=== PATIENT | male | born 1930 | race Caucasian/White ===

== ENCOUNTER 2017-12-11 08:05 | Inpatient (IN) | payer MEDICARE, OTHER ==
[~2017-12-11] VITALS: Ht 162.6 cm; Wt 104.3 kg
[~2017-12-11 08:05] MED LIST: ASPI-1169 PO; ATOR10TA PO; BENA20TA78 PO; CARV12.52 PO; CARV25TA PO; DOCU-270 PO; GABA-534 PO; OXYC-133 PO; SITA100T PO; TRAZ-144 PO; ZOLP10TA2 PO
--- NOTE | 2017-12-11 08:10 | NUR ---
BIBRA FROM HOME C/O ON/OFF LEFT SIDED CHEST PAIN NON-RADIATING, 162 ASA AND 2X NITRO GIVEN IN FIELD. AAO X4. RR EVEN AND UNLABORED. DR LIU AT BEDSIDE FOR EVAL. PT PLACED IN GOWN AND MONITOR.
[2017-12-11] MEDS ORDERED: FURO-144 PO (08:24)
[2017-12-11] MEDS ORDERED: OXYC10TA49 PO (08:24)
[2017-12-11] MEDS ORDERED: ATOR10TA PO (08:24)
[2017-12-11] MEDS ORDERED: CLON0.1T PO (08:24)
[2017-12-11] MEDS ORDERED: CARV25TA2 PO (08:24)
[2017-12-11] MEDS ORDERED: POTA10TA15 PO (08:24)
[2017-12-11] MEDS ORDERED: LORA1TAB PO (08:24)
[2017-12-11] MEDS ORDERED: OXYC30TA2 PO (08:24)
[2017-12-11 08:41] LABS: WHITE BLOOD COUNT (AUTO) 6.7 K/uL (4.3-11.0)
[2017-12-11 08:42] LABS: BASOPHILS # (AUTO) 0.1 /CMM (0.0-0.2); BASOPHILS % (AUTO) 0.8 % (0.0-2.0); EOSINOPHILS # (AUTO) 0.2 /CMM (0.0-0.7); HEMATOCRIT 41 % (39-51); LYMPHOCYTES # (AUTO) 1.4 /CMM (0.8-4.8); LYMPHOCYTES % (AUTO) 21.6 % (20.0-44.0); MEAN CORPUSCULAR HEMOGLOBIN 32 PG (26.0-33.0); MEAN CORPUSCULAR HGB CONC 34 g/dl (31.0-36.0); MEAN CORPUSCULAR VOLUME 94 fL (80-96); MONOCYTES # (AUTO) 0.5 /CMM (0.1-1.30); MONOCYTES % (AUTO) 8.2 % (2.0-12.0); NEUTROPHILS # (AUTO) 4.4 /CMM (1.8-8.9); NEUTROPHILS % (AUTO) 66.4 % (43.0-81.0); PLATELET COUNT (AUTO) 159 /CMM (150-450)
[2017-12-11 08:48] LABS: INR 1.25 (0.87-1.13)
[2017-12-11 08:53] LABS: TROPONIN I < 0.017 ng/mL (0.00-0.056)
[2017-12-11 08:54] LABS: ALANINE AMINOTRANSFERASE 15 U/L (12-78); ALBUMIN 3.5 g/dL (3.4-5.0); ALKALINE PHOSPHATASE 63 U/L (46-116); ASPARTATE AMINOTRANSFERASE 15 U/L (15-37); BILIRUBIN,DIRECT 0.4 mg/dL (0.0-0.2); BILIRUBIN,TOTAL 1.3 mg/dL (0.2-1.0); CALCIUM, SERUM 8.9 mg/dL (8.5-10.1); CARBON DIOXIDE 23 mmol/L (21-32); CHLORIDE 103 mmol/L (98-107); CREATININE 1.2 mg/dL (0.6-1.3); GLUCOSE 131 mg/dL (74-106); SODIUM SERUM 138 mmol/L (136-145); UREA NITROGEN, BLOOD 18 mg/dL (7-18)
[2017-12-11] MEDS ORDERED: INSU100V11 SQ (09:01)
--- NOTE | 2017-12-11 09:32 | NUR ---
REPORT GIVEN TO KETAN STEELE FOR SHAUNA TELE 315
--- NOTE | 2017-12-11 09:50 | NUR ---
QUILT MAKERHEATER PLANER OPERATOR NOTES RECEIVED PT FROM ER NURSE IN STABLE CONDITION. PER NURSE, PT CAME FROM HOME COMPLAINING OF CHEST PAIN. HE IS A/O X3. NO SOB OR SIGNS OF DISTRESS NOTED. HE DENIES ANY CHEST PAIN AT THIS TIME. SINUS YEHUDA/AFIB ON THE TELE MONITOR WITH A HR OF 54. PER ER NURSE, PT HAS BEEN YEHUDA UPON ARRIVAL. DR. CAMARGO WAS ALERTED OF PT'S ADMISSION FROM ER DOCTOR. CURRENTLY AWAITING ADMITTING ORDERS. PT WAS ORIENTED TO HIS ROOM AND VERBALIZED UNDERSTANDING OF US OF CALL LIGHT. BED IN LOW LOCKED POSITION, SIDE RAILS UP X2, CALL LIGHT WITHIN REACH, FAMILY AT BEDSIDE. WILL CONTINUE TO MONITOR AND BEGIN ADMISSION PROCESS.
[2017-12-11 10:00] VITALS: BP 140/83
--- NOTE | 2017-12-11 10:31 | NUR ---
PHYSICIAN CODING SPECIALIST NOTES NO ADMITTING ORDERS AT THIS TIME. DR. CAMARGO CALLED.
--- NOTE | 2017-12-11 11:26 | NUR ---
HEAD AND NECK SURGEON NOTES PT'S HR HAS GONE LOW 38 AND HIGH 56. NO CALL BACK FROM DR. CAMARGO AND NO ORDERS OF YET. DR. LOPEZ CALLED BY CHARGE NURSE FOR CONSULTATION AND STATED "I DO NOT SEE RAMAN'S PT". DR. QUIÑONEZ CALLED AGAIN. AWAITING CALL BACK
[2017-12-11 12:00] VITALS: BP 177/90
--- NOTE | 2017-12-11 12:14 | NUR ---
DIRECTOR CAMP NOTES TELEPHONE ORDERS RECEIVED BY DR CAMARGO.
[2017-12-11] MEDS ORDERED: NITROGLYCERIN 0.4 MG/TAB BOTTLE SL PRN (12:30)
[2017-12-11] MEDS ORDERED: INSULIN REGULAR, HUMAN 100 UNIT/ML 3 ML VIAL SQ PRN (12:30)
[2017-12-11] MEDS ORDERED: DEXTROSE 50%-WATER 50 ML DISP.SYRIN IV PRN (12:30)
[2017-12-11] MEDS ORDERED: CLONIDINE HCL 0.1 MG TABLET PO PRN (13:30)
[2017-12-11] MEDS ORDERED: oxyCODONE IR immediate release 5 MG PO PRN ×2 (13:30)
[2017-12-11] MEDS ORDERED: CARVEDILOL 12.5 MG TABLET PO SCH (13:30)
[2017-12-11] MEDS ORDERED: INSULIN ASPART/LISPRO 100 UNIT/ML CARTRIDGE SQ PRN (13:30)
[2017-12-11] MEDS: AMLODIPINE BESYLATE 5 MG TABLET PO SCH (13:34)
[2017-12-11 16:00] VITALS: BP 155/74
[2017-12-11] MEDS: CARVEDILOL 12.5 MG TABLET PO SCH (17:00)
[2017-12-11] MEDS: BLOOD SUGAR DIAGNOSTIC 1 EACH STRIP IN SCH ×2 (17:53→21:24)
[2017-12-11] MEDS: BENAZEPRIL HCL 20 MG TABLET PO SCH (17:55)
[2017-12-11] MEDS: GABAPENTIN 300 MG CAPSULE PO SCH (17:56)
--- NOTE | 2017-12-11 18:42 | NUR ---
NETWORK SPECIALIST CLOSING NOTES PT REMAINS STABLE SINCE ADMISSION. HE IS AFIB IN THE TELE MONITOR WITH A HR OF 58. ALL NEEDS WERE MET DURING SHIFT AND ORDERS CARRIED OUT ACCORDINGLY. ALL DUE MEDS GIVEN. HE CONTINUES TO DENY CHEST PAIN AT THIS TIME. FAMILY REMAINS AT BEDSIDE. WILL ENDORSE TO NIGHTSHIFT NURSE FOR SHAUNA
--- NOTE | 2017-12-11 19:30 | NUR ---
IRRIGATION EQUIPMENT MECHANIC OPENING NOTES: PATIENT IN BED, AOX3, ON ROOM AIR, BREATHING EVEN AND UNLABORED. BREATH SOUNDS CLEAR. ON TELE MONITORING: AFIB AT RATE OF 55. PATIENT DENIES SOB, OR CHEST PAIN, STATES HE IS FEELING WELL, TALKING TO FAMILY AT BEDSIDE. PIV OVER LAC G 18 AND RAC G 18 INTACT AND PATENT TO FLUSH. PROVIDED FOR COMFORT AND SAFETY. BED IN LOWEST AND LOCKED POSITION, SIDERAILS UP X 3, CALL LIGHT WITHIN REACH. PLACED PATIENT ON O2 AT 2 LPM. WILL CONT TO MONITOR.
[2017-12-11 20:00] VITALS: BP 141/79
--- NOTE | 2017-12-11 21:15 | NUR ---
RN NOTES: RECEIVED CALL FROM TELE MONITOR: PATIENT'S HR NOW AT 48. CHECKED ON PATIENT, ON BED, AOX3, ON O2 AT 2 LPM VIA NC, NO SOB, DENIES CHEST PAIN. BP STABLE. APICAL HR CHECKED FOR FULL MIN: 52 AT THIS TIME. WILL CONT TO MONITOR.
[2017-12-11] MEDS: ENOXAPARIN SODIUM 100 MG/ML DISP.SYRIN SQ SCH (21:16)
--- NOTE | 2017-12-11 21:50 | NUR ---
RN NOTES: BLOOD SUGAR CHECKED AT 128 MG/DL, NI INDICATION FOR INSULIN AT THIS TIME.
[2017-12-11 22:00] VITALS: BP 135/77
[2017-12-11] MEDS ORDERED: TRAZODONE 50 MG TABLET PO SCH (22:00)
[2017-12-11] MEDS ORDERED: ZOLPIDEM TARTRATE 10 MG TABLET PO SCH (22:00)
[2017-12-11] MEDS ORDERED: TAMSULOSIN 0.4 MG CAP.SR.24H PO SCH (22:00)
--- NOTE | 2017-12-11 23:16 | NUR ---
RN NOTES: SPOKE TO DR PETR MD (CARDIO GLEASON OPERATOR), RE PATIENT'S HR GOING DOWN TO 40S AND EVEN 30S. PATIENT IS ASYMPTOMATIC, AND HR OF 30S IS NOT SUSTAINED. PER DR HUMPHREYS, CONTINUE TO MONITOR CLOSELY.
[2017-12-12] VITALS: BP 142/75
--- NOTE | 2017-12-12 00:30 | NUR ---
RN NOTES: PATIENT REQUESTED TO HAVE HIS PIV OVER LAC TAKEN OFF DUE TO MILD PAIN. PIV STILL WITH GOOD BLOOD RETURN. REMOVED PIV AND REINSERTED NEW IV LINE OVER LEFT HAND G22.
[2017-12-12 04:00] VITALS: BP 141/70
[2017-12-12] MEDS: BLOOD SUGAR DIAGNOSTIC 1 EACH STRIP IN SCH ×2 (06:59→11:41)
[2017-12-12 07:03] VITALS: BP 144/72
--- NOTE | 2017-12-12 07:20 | NUR ---
REPORT RECEIVED AT THE BEDSIDE. PATIENT IS RESTING COMFORTABLY IN BED. NO SOB OR DISTRESS NOTED AT THIS TIME. PATIENT DENIES PAIN. HEART RATE AFIB 48-50. BED IN A LOW POSITION, CALL LIGHT WITHIN PATIENT REACH, FAMILY IS AT THE BEDSIDE. WILL CONTINUE TO MONITOR.
[2017-12-12] MEDS ORDERED: PANTOPRAZOLE 40 MG TABLET.DR PO SCH (07:30)
--- NOTE | 2017-12-12 07:30 | NUR ---
TABLE ASSEMBLER METAL CLOSING NOTES: PATIENT IN BED, AOX3, ON O2 AT 2 LPM VIA NC, BREATHING EVEN AND UNLABORED. APPEARS CALM AND IN NO DISTRESS. DENIES PAIN AT THIS TIME. PIV OVER LEFT HAND G22 INTACT AND PATENT TO FLUSH. ON TELE MONITOR: AFIB AT RATE OF 48. DUE MEDS GIVEN. PROVIDED FOR COMFORT AND SAFETY. BED IN LOWEST AND LOCKED POSITION, SIDERAILS UP X 3, CALL LIGHT WITHIN REACH. ENDORSED TO KETAN HERRERA FOR SHAUNA.
[2017-12-12 08:00] VITALS: BP 144/72
--- NOTE | 2017-12-12 08:45 | NUR ---
DR KHAN ON FLOOR. STATES OK TO GIVE LOTENSIN AND AMLODIPINE, HOLD ALL OTHER BP MEDS.
[2017-12-12] MEDS: CARVEDILOL 12.5 MG TABLET PO SCH (08:57)
[2017-12-12] MEDS: GABAPENTIN 300 MG CAPSULE PO SCH (08:58)
[2017-12-12 08:59] VITALS: BP 144/72
[2017-12-12] MEDS: AMLODIPINE BESYLATE 5 MG TABLET PO SCH (08:59)
[2017-12-12] MEDS: BENAZEPRIL HCL 20 MG TABLET PO SCH (08:59)
[2017-12-12] MEDS ORDERED: LINAGLIPTIN 5 MG TABLET PO SCH (09:00)
[2017-12-12] MEDS ORDERED: ENALAPRIL MALEATE (5 MG) 5 MG TABLET PO SCH (09:00)
[2017-12-12] MEDS ORDERED: ATORVASTATIN 10 MG TABLET PO SCH (09:00)
[2017-12-12] MEDS ORDERED: DOCUSATE SODIUM 100 MG CAPSULE PO SCH (09:00)
[2017-12-12] MEDS ORDERED: ASPIRIN 81 MG TAB.CHEW PO SCH (09:00)
[2017-12-12] MEDS: ENOXAPARIN SODIUM 100 MG/ML DISP.SYRIN SQ SCH (09:00)
[2017-12-12] MEDS ORDERED: LORAZEPAM 1 MG TABLET PO SCH (09:00)
--- NOTE | 2017-12-12 09:58 | NUR ---
SPOKE TO DR KHAN OVER THE PHONE AND INFORMED HIM THAT DR CAMARGO IS READY TO DISCHARGE THE PATIENT. MD IS IN AGREEMENT AND STATES THAT HE WILL SEND AND ELECTRONIC RX FOR ELEQUIS TO THE PATIENT'S PHARMACY TODAY AND THAT NO HARD COPY RX IS NEEDED AT DISCHARGE. POST XRAYS OF THE BILATERAL KNEES, WILL DISCHARGE THE PATIENT HOME.
--- NOTE | 2017-12-12 10:45 | NUR ---
XRAYS TAKEN OF BILATERAL KNEES. MD STATES OK TO DISCHARGE AND HE WILL FOLLOW UP WITH THE PATIENT POST DISCHARGE.
--- NOTE | 2017-12-12 11:40 | NUR ---
PT REFUSING 1200 GLUCOSE CHECK. STATES "I AM GOING HOME, I WILL CHECK WHEN I GET THERE."
--- NOTE | 2017-12-12 12:20 | NUR ---
DISCHARGE INSTRUCTIONS GIVEN TO THE PATIENT AND GRANDSON AND ABLE TO UNDERSTAND. ALL PAPER WORK SIGNED AND BELONGINGS ACCOUNTED FOR. PATIENT AND GRANDSON STATE FULL UNDERSTANDING OF DISCHARGE AND FOLLOW UP INSTRUCTIONS. IV LINE REMOVED AND PRESSURE APPLIED, NO BLEEDING NOTED AT THE SITE.. PICTURES OF SKIN NOT NEEDED PATIENT SKIN IS INTACT. HEART MONITOR REMOVED AND RETURNED TO THE TELE DESK. FLU AND PNEUMONIA NOT GIVEN PATIENT REFUSES THE VACCINES. PATIENT LEFT IN STABLE CONDITION, AMBULATORY, TO HOME. ESCORTED TO CAR BY DEMETRIS KIMBLE. NO SOB OR DISTRESS NOTED.
== END 2017-12-12 12:46 | disposition home or self-care (01) | DRG 303 ==
LOC: ER 08:07 → TELE 09:32
PROVIDERS: ADMIT Family Medicine; ATTEND Family Medicine
DX: I25.119 Atherosclerotic heart disease of native coronary artery with unspecified angina pectoris (principal); D69.6 Thrombocytopenia, unspecified; I48.2 Chronic atrial fibrillation; I50.9 Heart failure, unspecified; I11.0 Hypertensive heart disease with heart failure; E11.9 Type 2 diabetes mellitus without complications; I10 Essential (primary) hypertension; E78.5 Hyperlipidemia, unspecified; I16.0 Hypertensive urgency; F03.90 Unspecified dementia, unspecified severity, without behavioral disturbance, psychotic disturbance, mood disturbance, and anxiety; Z96.659 Presence of unspecified artificial knee joint; Z95.1 Presence of aortocoronary bypass graft; Z91.19 Patient's noncompliance with other medical treatment and regimen; Z86.73 Personal history of transient ischemic attack (TIA), and cerebral infarction without residual deficits; Z82.49 Family history of ischemic heart disease and other diseases of the circulatory system; Z79.82 Long term (current) use of aspirin; N40.0 Benign prostatic hyperplasia without lower urinary tract symptoms; K21.9 Gastro-esophageal reflux disease without esophagitis; I25.5 Ischemic cardiomyopathy; I35.0 Nonrheumatic aortic (valve) stenosis; J44.9 Chronic obstructive pulmonary disease, unspecified; Z79.84 Long term (current) use of oral hypoglycemic drugs; Z79.899 Other long term (current) drug therapy; Z79.4 Long term (current) use of insulin; H54.7 Unspecified visual loss; H91.90 Unspecified hearing loss, unspecified ear; G47.33 Obstructive sleep apnea (adult) (pediatric); Z91.11 Patient's noncompliance with dietary regimen; Z91.14 Patient's other noncompliance with medication regimen; K08.409 Partial loss of teeth, unspecified cause, unspecified class; E66.9 Obesity, unspecified; Z68.39 Body mass index [BMI] 39.0-39.9, adult
CPT/HCPCS: 36415; 71045-TC; 73560-TC; 80048-TC; 80076-TC; 82962-TC; 84484-TC; 85025-TC; 85730-TC; 87081-TC; 93307-TC; A4606; J1650; J1815; Z7610

== ENCOUNTER 2018-07-20 18:34 | Inpatient (IN) | payer MEDICARE, OTHER ==
[~2018-07-20] VITALS: Ht 165.1 cm; Wt 98.9 kg
[~2018-07-20 18:34] MED LIST changes: -CARV12.52 PO; +CLON0.1T PO; +INSU100V11 SQ; +LORA1TAB PO; -OXYC-133 PO; +OXYC10TA49 PO; +OXYC30TA2 PO; -TRAZ-144 PO; +TRAZ-182 PO
--- NOTE | 2018-07-20 18:45 | NUR ---
PT BIB PARAMEDICS, CAME IN DUE TO SOB, ON 02 @ 2LPM VIA NC AND TOLERATED WELL WITH 02 SAT OF 96%. PATIENT IS ALERT AND ORIENTED X 3, VERBALLY RESPONSIVE. SON AND AT BEDSIDE. KEPT COMFORTABLE. WILL CONTINUE TO MONITOR ACCORDINGLY.
[2018-07-20 19:03] LABS: BASOPHILS % (AUTO) 0.6 % (0.0-2.0); EOSINOPHILS % (AUTO) 3.8 % (0.0-6.0); HEMATOCRIT 40 % (39-51); HEMOGLOBIN 13.3 g/dL (13.5-17.5); LYMPHOCYTES # (AUTO) 1.4 /CMM (0.8-4.8); LYMPHOCYTES % (AUTO) 28.8 % (20.0-44.0); MEAN CORPUSCULAR HGB CONC 33 g/dl (31.0-36.0); MEAN CORPUSCULAR VOLUME 93 fL (80-96); MONOCYTES # (AUTO) 0.5 /CMM (0.1-1.30); MONOCYTES % (AUTO) 9.5 % (2.0-12.0); NEUTROPHILS # (AUTO) 2.9 /CMM (1.8-8.9); NEUTROPHILS % (AUTO) 57.3 % (43.0-81.0); PLATELET COUNT (AUTO) 194 /CMM (150-450); RDW COEFFICIENT OF VARIATION 13.2 (11.5-15.0); RED BLOOD CELL COUNT(AUTO) 4.29 MIL/uL (4.5-6.0)
--- NOTE | 2018-07-20 19:05 | NUR ---
RADIOLOGY AT BEDSIDE FOR CXR
[2018-07-20] MEDS ORDERED: POTA-10 PO (19:08)
[2018-07-20] MEDS ORDERED: AMLO5TAB7 PO (19:08)
[2018-07-20] MEDS ORDERED: AMLO10TA6 PO (19:08)
[2018-07-20] MEDS ORDERED: APIX5TAB PO (19:08)
[2018-07-20 19:13] LABS: CALCIUM, SERUM 9.3 mg/dL (8.5-10.1); CARBON DIOXIDE 23 mmol/L (21-32); CHLORIDE 106 mmol/L (98-107); GLUCOSE 113 mg/dL (74-106); POTASSIUM 3.8 mmol/L (3.5-5.1); SODIUM SERUM 139 mmol/L (136-145); UREA NITROGEN, BLOOD 14 mg/dL (7-18)
[2018-07-20 19:15] LABS: INR 1.23 (0.85-1.15)
[2018-07-20 19:20] LABS: TROPONIN I < 0.017 ng/mL (0.00-0.056)
[2018-07-20 19:28] LABS: ALANINE AMINOTRANSFERASE 11 U/L (12-78); ALBUMIN 3.6 g/dL (3.4-5.0); ALKALINE PHOSPHATASE 86 U/L (46-116); ASPARTATE AMINOTRANSFERASE 11 U/L (15-37); B-TYPE NATRIURETIC PEPTIDE 3410 PG/ML (0-125); BILIRUBIN,DIRECT 0.2 mg/dL (0.0-0.2); BILIRUBIN,TOTAL 0.8 mg/dL (0.2-1.0); TOTAL PROTEIN, SERUM 7.8 g/dL (6.4-8.2)
--- NOTE | 2018-07-20 19:29 | NUR ---
CALLED [facility] FOR PANEL ADMISSION, DR. JONI WILSON.
[2018-07-20] MEDS ORDERED: FUROSEMIDE 40 MG/4 ML VIAL IV ONE (19:30)
[2018-07-20] MEDS ORDERED: FUROSEMIDE 40 MG/4 ML VIAL ONE (19:30)
[2018-07-20] MEDS ORDERED: ASPIRIN 81 MG TAB.CHEW ONE (19:38)
--- NOTE | 2018-07-20 19:39 | NUR ---
CALLED RN SUP FOR TELE BED.
[2018-07-20] MEDS ORDERED: HYDROCODONE/APAP 5/325MG 1 EACH TABLET PO PRN (20:00)
[2018-07-20] MEDS ORDERED: hydrALAZINE HCL 25 MG TABLET PO PRN (20:00)
[2018-07-20] MEDS ORDERED: *INSULIN REGULAR(HUMULIN R)HUM 100 UNIT/ML VIAL SQ PRN ×2 (20:00→22:30)
[2018-07-20] MEDS ORDERED: ONDANSETRON HCL/PF 4 MG/2 ML VIAL IVP PRN (20:00)
[2018-07-20] MEDS ORDERED: ACETAMINOPHEN 325 MG TABLET PO PRN (20:00)
[2018-07-20] MEDS ORDERED: ALBUTEROL FS 2.5 MG/3 ML VIAL.NEB NEB SCH (20:00)
[2018-07-20] MEDS ORDERED: Z GUARD REMEDY 2 OZ OINT TP PRN (20:00)
[2018-07-20] MEDS ORDERED: MAGNESIUM HYDROXIDE 30 ML UDC PO PRN (20:00)
[2018-07-20] MEDS ORDERED: MAG HYDROX/AL HYDROX/SIMETH 30 ML UDC PO PRN (20:00)
[2018-07-20] MEDS ORDERED: DEXTROSE 50%-WATER 50 ML DISP.SYRIN IV PRN ×2 (20:00→22:30)
[2018-07-20] MEDS ORDERED: ZOLPIDEM TARTRATE 5 MG TABLET PO PRN ×2 (20:00→23:00)
[2018-07-20] MEDS ORDERED: INSULIN REGULAR, HUMAN 100 UNIT/ML 3 ML VIAL SQ PRN (20:00)
[2018-07-20] MEDS ORDERED: ASPIRIN 81 MG TAB.CHEW PO ONE (20:00)
--- NOTE | 2018-07-20 20:07 | NUR ---
PT IS ASSIGNED TO [facility] RM#: [id number], DX: HEART FAILURE, AND ACCEPTING MD: DR QUINONES
--- NOTE | 2018-07-20 20:16 | NUR ---
GAVE REPORT TO KETAN ECHAVARRIA FOR SHAUNA
[2018-07-20] MEDS ORDERED: MORPHINE SULFATE INJ 4 MG/ML DISP.SYRIN IV PRN (21:30)
--- NOTE | 2018-07-20 21:35 | NUR ---
TELE/RN NOTES RECEIVED PT. FROM ER VIA DESTINY. PT. IS AWAKE, ALERT AND ORIENTED X 3 BREATHING EVEN AND UNLABORED ON 2LPM O2 VIA NC. NO SOB, RESPIRATORY DISTRESS OR COMPLAINTS OF PAIN NOTED AT THIS TIME. NO COMPLAINTS OF CHEST PAIN, HEADACHE, LIGHTHEADED OR DIZZINESS NOTED AT THIS TIME. ORIENTED PT. TO ROOM. PLACED EXTERNAL DRIVERS LICENSE EXAMINER ON PT. CURRENT RHYTHM = AFIB HR 52. PT. WITH LEFT HAND 20 GAUGE IV SALINE LOCK PRESENT, PATENT AND INTACT. BED LOCKED AND IN LOWEST POSITION, SIDE RAILS UP X2, CALL LIGHT WITHIN REACH, WILL CONTINUE TO MONITOR.
--- NOTE | 2018-07-20 21:41 | NUR ---
TRANSFERRED PT PER ACLS PROTOCOL
[2018-07-20 21:45] VITALS: BP 159/75
[2018-07-20] MEDS ORDERED: BLOOD SUGAR DIAGNOSTIC 1 EACH STRIP VI SCH (22:00)
--- NOTE | 2018-07-20 22:07 | NUR ---
TELE/RN NOTES SPOKE WITH DR. QUINONES TO INFORM HER PT. IS NOW UNDER DR. CAMARGO'S CARE. PER DR. QUINONES, SHE IS AWARE AND "PLEASE D/C ALL OF MY ORDERS". WILL CARRY OUT ORDERS. WILL CONTINUE TO MONITOR.
[2018-07-20] MEDS ORDERED: CARVEDILOL 6.25 MG TABLET PO SCH (22:30)
[2018-07-20] MEDS: GABAPENTIN 300 MG CAPSULE PO SCH (23:00)
[2018-07-20] MEDS: IPRATROPIUM NEB FS 0.5 MG/2.5 ML AMPUL.NEB NEB SCH (23:11)
[2018-07-20] MEDS: ALBUTEROL FS 2.5 MG/3 ML VIAL.NEB NEB SCH (23:11)
--- NOTE | 2018-07-20 23:13 | NUR ---
TELE/RN NOTES CALLED AND NOTIFIED DR. CAMARGO PT. IS AFIB ON THE TAKE DOWN SORTER HR RANGING BETWEEN 36-49. PT. IS ASYMPTOMATIC. NO COMPLAINTS OF SHORTNESS OF BREATH, LIGHTHEADED, DIZZINESS OR LOC. PER DR. CAMARGO NEW ORDERS: DISCONTINUE COREG MEDICATION, OK FOR PT. TO HAVE AMBIEN MEDICATION ORDERED, HOLD GABAPENTIN MEDICATION FOR TONIGHT, CHANGE NORVASC MEDICATION TO 5MG PO Q12 HOURS, PROTONIX 40 MG PO DAILY FIRST DOSE TO BE GIVEN NOW. PER DR. CAMARGO PT. HEART RATE IS OK RIGHT NOW NO INTERVENTION NEEDED, BUT IF PT. BECOMES SYMPTOMATIC PLACE PT. ON EXTERNAL PACER. PT. TO HAVE CARDIAC CONSULT TOMORROW. WILL CARRY OUT ORDERS. WILL CONTINUE TO MONITOR.
[2018-07-20] MEDS: PANTOPRAZOLE 40 MG TABLET.DR PO SCH (23:36)
[2018-07-20] MEDS: ZOLPIDEM TARTRATE 5 MG TABLET PO SCH (23:36)
[2018-07-20] MEDS: BLOOD SUGAR DIAGNOSTIC 1 EACH STRIP VI SCH (23:48)
[2018-07-21] VITALS (7 sets, daily range): BP systolic 136–150; BP diastolic 52–85
[2018-07-21] MEDS ORDERED: FUROSEMIDE 40 MG/4 ML VIAL IV SCH ×2 (04:00→05:00)
--- NOTE | 2018-07-21 06:05 | NUR ---
TELE/RN NOTES PT. IS SITTING UP IN BED. PT. IS AWAKE, ALERT AND ORIENTED X3. BREATHING EVEN AND UNLABORED ON 2LPM O2 VIA NC. NO SOB, RESPIRATORY DISTRESS OR COMPLAINTS OF PAIN NOTED AT THIS TIME AND THROUGHOUT SHIFT. NO COMPLAINTS OF CHEST PAIN, HEADACHE, LIGHTHEADED OR DIZZINESS NOTED AT THIS TIME AND THROUGHOUT SHIFT. PT. WITH EXTERNAL LEVEL VIAL MARKER PRESENT AND INTACT, CURRENT RHYTHM = AFIB HR 42. PT. WITH LEFT HAND 20 GAUGE IV SALINE LOCK PRESENT, PATENT AND INTACT. ALL PT. NEEDS MET. BED LOCKED AND IN LOWEST POSITION, SIDE RAILS UP X2, CALL LIGHT WITHIN REACH, WILL ENDORSE TO DAYSHIFT NURSE FOR CONTINUITY OF CARE.
[2018-07-21] MEDS: BLOOD SUGAR DIAGNOSTIC 1 EACH STRIP VI SCH ×4 (06:49→22:41)
[2018-07-21 07:08] LABS: BASOPHILS % (AUTO) 0.6 % (0.0-2.0); EOSINOPHILS % (AUTO) 3.4 % (0.0-6.0); HEMATOCRIT 40 % (39-51); HEMOGLOBIN 13.5 g/dL (13.5-17.5); LYMPHOCYTES # (AUTO) 1.7 /CMM (0.8-4.8); LYMPHOCYTES % (AUTO) 28.4 % (20.0-44.0); MEAN CORPUSCULAR HGB CONC 34 g/dl (31.0-36.0); MEAN CORPUSCULAR VOLUME 95 fL (80-96); MONOCYTES # (AUTO) 0.6 /CMM (0.1-1.30); MONOCYTES % (AUTO) 9.8 % (2.0-12.0); NEUTROPHILS # (AUTO) 3.4 /CMM (1.8-8.9); NEUTROPHILS % (AUTO) 57.8 % (43.0-81.0); PLATELET COUNT (AUTO) 207 /CMM (150-450); RDW COEFFICIENT OF VARIATION 14.1 (11.5-15.0); RED BLOOD CELL COUNT(AUTO) 4.24 MIL/uL (4.5-6.0); WHITE BLOOD COUNT (AUTO) 5.9 K/uL (4.3-11.0)
[2018-07-21 07:12] LABS: CALCIUM, SERUM 8.3 mg/dL (8.5-10.1); CARBON DIOXIDE 27 mmol/L (21-32); CHLORIDE 102 mmol/L (98-107); CREATININE 1.2 mg/dL (0.6-1.3); GLUCOSE 108 mg/dL (74-106); POTASSIUM 3.3 mmol/L (3.5-5.1); SODIUM SERUM 140 mmol/L (136-145); UREA NITROGEN, BLOOD 12 mg/dL (7-18)
--- NOTE | 2018-07-21 07:23 | NUR ---
MARINE EQUIPMENT TEST ENGINEER OPENING NOTES PT WAS RECEIVED SITTING IN BED WITH SIDE RAILS UP X2, A/O X3, NO S/S OF PAIN OR DISTRESS NOTED, BREATHING IS EVEN AND UNLABORED AND CURRENTLY ON 2L VIA NC, PT IS ON TELE MONITOR SHOWING KENISHA BLACKMAN IN THE 4OS ASYMPTOMATIC MD IS AWARE, IV IS PATENT AND INTACT, SAFETY PRECAUTIONS IN PLACE, CALL LIGHT WITHIN REACH, WILL CONTINUE TO MONITOR ACCORDINGLY
[2018-07-21 07:53] LABS: IRON, SERUM 79 ug/dl (50-175); TOTAL IRON BINDING CAPACITY 288 ug/dl (250-450)
[2018-07-21] MEDS: ALBUTEROL FS 2.5 MG/3 ML VIAL.NEB NEB SCH ×3 (08:13→23:30)
[2018-07-21] MEDS: IPRATROPIUM NEB FS 0.5 MG/2.5 ML AMPUL.NEB NEB SCH ×3 (08:13→23:30)
[2018-07-21] MEDS: DOCUSATE SODIUM 100 MG CAPSULE PO SCH (08:29)
[2018-07-21] MEDS: PANTOPRAZOLE 40 MG TABLET.DR PO SCH (08:30)
[2018-07-21] MEDS ORDERED: POTASSIUM CHLORIDE 10 MEQ TABLET.SA PO SCH (09:00)
[2018-07-21] MEDS ORDERED: BENAZEPRIL HCL 20 MG TABLET PO SCH (09:00)
[2018-07-21] MEDS ORDERED: GABAPENTIN 300 MG CAPSULE PO SCH (09:00)
[2018-07-21] MEDS: BENAZEPRIL HCL 10 MG TABLET PO SCH (09:00)
[2018-07-21] MEDS ORDERED: CARVEDILOL 6.25 MG TABLET PO SCH (09:00)
[2018-07-21] MEDS ORDERED: DOCUSATE SODIUM 100 MG CAPSULE PO SCH (09:00)
[2018-07-21] MEDS ORDERED: AMLODIPINE BESYLATE 5 MG TABLET PO SCH ×3 (09:00)
[2018-07-21] MEDS: AMLODIPINE BESYLATE 5 MG TABLET PO SCH ×2 (09:00→22:43)
[2018-07-21] MEDS ORDERED: APIXABAN 5 MG TABLET PO SCH ×2 (09:00)
[2018-07-21 09:43] LABS: AMYLASE 20 U/L (25-115); LIPASE 63 U/L (73-393)
[2018-07-21] MEDS: POTASSIUM CHLORIDE 20 MEQ TAB.PRT.SR PO SCH (10:04)
[2018-07-21] MEDS ORDERED: FUROSEMIDE 20 MG/2 ML VIAL IV SCH ×2 (12:00→17:00)
[2018-07-21] MEDS: INSULIN REGULAR, HUMAN 100 UNIT/ML 3 ML VIAL SQ PRN (17:39)
--- NOTE | 2018-07-21 18:07 | NUR ---
PEDIATRIC GENETIC COUNSELOR CLOSING NOTES PT SITTING IN BED WITH SIDE RAILS UP X2, A/O X3, NO S/S OF PAIN OR DISTRESS NOTED, BREATHING IS EVEN AND UNLABORED AND CURRENTLY ON 2L VIA NC, PT IS ON TELE MONITOR SHOWING KENISHA BLACKMAN IN THE 4OS ASYMPTOMATIC MD IS AWARE, IV IS PATENT AND INTACT WITH NO IVF RUNNING, FRIEND/FAMILY IS PRESENT AT BEDSIDE, SAFETY PRECAUTIONS IN PLACE, CALL LIGHT WITHIN REACH, ALL NEEDS ATTENDED TO, WILL ENDORSE TO HORTICULTURAL AGENT FOR CONTINUITY OF CARE
--- NOTE | 2018-07-21 19:30 | NUR ---
RN OPENING NOTES PT IS AWAKE AND ALERT, SITTING ON THE CHAIR. PT FAMILY IS AT BEDSIDE. PT IN ROOM AIR, TOLERATING WELL, NO SIGNS OF DISTRESS, NO LABORED BREATHING. CARDIAC MONITORING IN PLACED, SHOWING A.FIB AT 73, ASYMPTOMATIC. IV ACCESS ON THE LEFT HAND 20G IS PATENT AND INTACT. PT DENIES ANY PAIN, NO SOB. SAFETY MEASURES IN PLACED, CALL LIGHT WITHIN REACH. WILL CONTINUE TO MONITOR AND ASSESS PT.
[2018-07-21] MEDS: GABAPENTIN 300 MG CAPSULE PO SCH (22:00)
--- NOTE | 2018-07-21 22:41 | NUR ---
RN NOTES/ ACCUCHECK PT BLOOD SUGAR IS 103, NO INSULIN COVERAGE PER SLIDING SCALE.
[2018-07-21] MEDS: ZOLPIDEM TARTRATE 5 MG TABLET PO SCH (22:42)
[2018-07-22] VITALS (7 sets, daily range): BP systolic 110–146; BP diastolic 53–63
--- NOTE | 2018-07-22 01:15 | NUR ---
RN NOTES PT GOT OUT OF THE ROOM. HE WAS WALKING AROUND THE UNIT. HE WAS SLIGHTLY CONFUSED, HE ASKED WHERE HIS ROOM IS AND WHEN TOLD WHERE IT IS, HE STATES "NO, ITS NOT MY ROOM." HE'S SITTING OUTSIDE HIS ROOM ON A CHAIR, NO SIGNS OF FURTHER MENTAL STATUS CHANGE.
--- NOTE | 2018-07-22 06:24 | NUR ---
RN NOTES/ ACCUCHECK BLOOD SUGAR IS 120, NO INSULIN COVERAGE PER SLIDING SCALE
[2018-07-22] MEDS: BLOOD SUGAR DIAGNOSTIC 1 EACH STRIP VI SCH ×4 (06:26→22:08)
--- NOTE | 2018-07-22 06:31 | NUR ---
RN CLOSING NOTES PT IS AWAKE AND ALERT TO NAME AND PLACE. PT IN ROOM AIR, TOLERATING WELL, NO SIGNS OF DISTRESS, NO LABORED BREATHING. CARDIAC MONITORING IN PLACED, SHOWING A.FIB AT 51, ASYMPTOMATIC, NO CHEST PAIN. IV ACCESS ON THE LEFT HAND 20G IS PATENT AND INTACT. PT DENIES ANY PAIN, NO SOB. SAFETY MEASURES IN PLACED, CALL LIGHT WITHIN REACH. WILL ENDORSE CONTINUITY OF CARE TO ONCOMING RN
[2018-07-22 07:07] LABS: BASOPHILS % (AUTO) 0.6 % (0.0-2.0); EOSINOPHILS % (AUTO) 3.6 % (0.0-6.0); HEMATOCRIT 39 % (39-51); HEMOGLOBIN 13.4 g/dL (13.5-17.5); LYMPHOCYTES # (AUTO) 1.5 /CMM (0.8-4.8); LYMPHOCYTES % (AUTO) 25.9 % (20.0-44.0); MEAN CORPUSCULAR HGB CONC 34 g/dl (31.0-36.0); MEAN CORPUSCULAR VOLUME 94 fL (80-96); MONOCYTES # (AUTO) 0.7 /CMM (0.1-1.30); MONOCYTES % (AUTO) 11.7 % (2.0-12.0); NEUTROPHILS # (AUTO) 3.4 /CMM (1.8-8.9); NEUTROPHILS % (AUTO) 58.2 % (43.0-81.0); PLATELET COUNT (AUTO) 222 /CMM (150-450); RDW COEFFICIENT OF VARIATION 14.5 (11.5-15.0); RED BLOOD CELL COUNT(AUTO) 4.19 MIL/uL (4.5-6.0); WHITE BLOOD COUNT (AUTO) 5.8 K/uL (4.3-11.0)
--- NOTE | 2018-07-22 07:25 | NUR ---
JACK SPOOLER TENDER INITIAL NOTES Reprot received at bedside. Patient received in bed, intermitently sleeping, easily aroused. Verbally responsive. Came in for worsening SOb [id number]. Dx: CHF. NPO after midnight for possible PPM placement. Tele: A-fib; HR 40-50s with PVCs. On ongoing potassium PO placement. No SOB noted. Not in any type of distress. safety measures in place. Will continue to monitor and assess patient.
[2018-07-22 07:30] LABS: ALANINE AMINOTRANSFERASE 14 U/L (12-78); ALBUMIN 3.5 g/dL (3.4-5.0); ALKALINE PHOSPHATASE 66 U/L (46-116); ASPARTATE AMINOTRANSFERASE 11 U/L (15-37); BILIRUBIN,TOTAL 1.3 mg/dL (0.2-1.0); CALCIUM, SERUM 8.9 mg/dL (8.5-10.1); CARBON DIOXIDE 27 mmol/L (21-32); CHLORIDE 101 mmol/L (98-107); CREATININE 1.3 mg/dL (0.6-1.3); GLUCOSE 137 mg/dL (74-106); POTASSIUM 3.3 mmol/L (3.5-5.1); SODIUM SERUM 136 mmol/L (136-145); TOTAL PROTEIN, SERUM 7.9 g/dL (6.4-8.2); UREA NITROGEN, BLOOD 15 mg/dL (7-18)
[2018-07-22] MEDS: ALBUTEROL FS 2.5 MG/3 ML VIAL.NEB NEB SCH ×2 (07:51→15:16)
[2018-07-22] MEDS: IPRATROPIUM NEB FS 0.5 MG/2.5 ML AMPUL.NEB NEB SCH ×2 (07:51→15:15)
[2018-07-22] MEDS ORDERED: FUROSEMIDE 40 MG TABLET PO SCH (09:00)
[2018-07-22] MEDS: AMLODIPINE BESYLATE 5 MG TABLET PO SCH ×2 (09:03→21:15)
[2018-07-22] MEDS: BENAZEPRIL HCL 10 MG TABLET PO SCH (09:03)
[2018-07-22] MEDS: POTASSIUM CHLORIDE 20 MEQ TAB.PRT.SR PO SCH ×3 (09:03→11:25)
[2018-07-22] MEDS: DOCUSATE SODIUM 100 MG CAPSULE PO SCH (09:03)
[2018-07-22] MEDS: PANTOPRAZOLE 40 MG TABLET.DR PO SCH (09:03)
[2018-07-22] MEDS: INSULIN REGULAR, HUMAN 100 UNIT/ML 3 ML VIAL SQ PRN ×2 (11:58→17:34)
[2018-07-22 16:44] LABS: CALCIUM, SERUM 8.5 mg/dL (8.5-10.1); CARBON DIOXIDE 25 mmol/L (21-32); CHLORIDE 102 mmol/L (98-107); CREATININE 1.4 mg/dL (0.6-1.3); GLUCOSE 108 mg/dL (74-106); POTASSIUM 3.6 mmol/L (3.5-5.1); SODIUM SERUM 137 mmol/L (136-145); UREA NITROGEN, BLOOD 19 mg/dL (7-18)
--- NOTE | 2018-07-22 19:19 | NUR ---
TECHNICAL TRAINING INSTRUCTOR CLOSING NOTES Report given at bedside. Patient in bed, awake and verbally responsive. Alert and oriented x4, Colombian speaking with limited Citizen [place]. Denies any pain. No SOB/labored breathing noted. Not in any type of distress. Breathing treatment on the clock. Afebrile. Tele: Afib; HR 40-50s. Permanent pacemaker placement tomorrow on 07/23/18 @0900. Consents signed. On ongoing potassium replacement (K-Dur) PO. NPO after midnight tonight EXCEPT for meds as ordered. Daughter made aware of procedure. All needs anticipated and met. Bed in locked and lowest position with call light within reach. Endorsed to oncoming shift nurse
--- NOTE | 2018-07-22 19:40 | NUR ---
RN NOTES RECEIVED PT AWAKE, OUT OF BED SITTING IN THE CHAIR WITH FAMILY AT BEDSIDE. ON ROOM AIR AND TOLERATED WELL, NO SIGNS OF DISTRESS AND DISCOMFORT NOTED. PT IS ALERT AND ORIENTED X3, FORGETFUL. TELE MONITOR READS A. FIB. WITH HEART RATE AT 47. IV ACCESS ON LEFT HAND PATENT AND INTACT. FOR PPM PLACEMENT TOMORROW, PLAN OF CARE DISCUSSED WITH THE PT AND FAMILY AT BEDSIDE AND VERBALIZED UNDERSTANDING. SAFETY MEASURES AND FALL PRECAUTION OBSERVED, CALL LIGHT WITH IN REACH. WILL CONTINUE TO MONITOR PT.
[2018-07-22] MEDS: GABAPENTIN 300 MG CAPSULE PO SCH (22:04)
[2018-07-22] MEDS: ZOLPIDEM TARTRATE 5 MG TABLET PO SCH (22:04)
[2018-07-23] VITALS: BP 126/51
[2018-07-23] MEDS: IPRATROPIUM NEB FS 0.5 MG/2.5 ML AMPUL.NEB NEB SCH ×3 (00:22→18:15)
[2018-07-23] MEDS: ALBUTEROL FS 2.5 MG/3 ML VIAL.NEB NEB SCH ×3 (00:22→18:15)
[2018-07-23 04:00] VITALS: BP 109/36
[2018-07-23] MEDS: BLOOD SUGAR DIAGNOSTIC 1 EACH STRIP VI SCH ×4 (06:33→21:44)
--- NOTE | 2018-07-23 07:15 | NUR ---
WAISTLINE JOINER LOCKSTITCH INITIAL NOTES Report received. Patient received in bed, sleeping, easily aroused. Denies any pain at the moment. Not in any type of distress. Scheduled procedure for pacemaker placement at 0900. Will continue to monitor and assess patient.
--- NOTE | 2018-07-23 07:20 | NUR ---
RN NOTES PT SLEPT WELL OVERNIGHT, NO SIGNS OF DISTRESS AND DISCOMFORT NOTED. TELE MONITOR READS A. FIB WITH HEART RATE AT 40-50'S. KEPT PT ON NPO, PT IS FOR PPM PLACEMENT AT 0900. NO SIGNIFICANT CHAMNGE IN CONDITION NOTED. SAFETY MEASURES AND FALL PRECAUTION OBSERVED. ALL NEEDS ATTENDED. ENDORSED TO MORNING RN FOR CONTINUITY OF CARE.
[2018-07-23 08:00] VITALS: BP 137/69
[2018-07-23] MEDS: DOCUSATE SODIUM 100 MG CAPSULE PO SCH (08:40)
[2018-07-23] MEDS: PANTOPRAZOLE 40 MG TABLET.DR PO SCH (08:40)
[2018-07-23] MEDS: AMLODIPINE BESYLATE 5 MG TABLET PO SCH ×2 (08:41→21:30)
[2018-07-23] MEDS: BENAZEPRIL HCL 10 MG TABLET PO SCH (08:41)
[2018-07-23] MEDS: POTASSIUM CHLORIDE 20 MEQ TAB.PRT.SR PO SCH (08:41)
[2018-07-23] MEDS ORDERED: IOHEXOL 240MG/ML 0 ML IV ONE (09:21)
[2018-07-23] MEDS ORDERED: LIDOCAINE HCL/PF 1% 30 ML SDV ONE (09:21)
--- NOTE | 2018-07-23 10:52 | NUR ---
CHIEF LENDING OFFICER - POST OP NOTES Patient came back from OR in stable condition. Awake, alert and verbally responsive. Denies any pain. Not in any type of distress. No bleeding on surgical site noted. Post op order to resume pre-op meds and diet, Ancef , tylenol and Vicodin (Faxed tp pharmacy). 113/67 52 18 98.0 95-96% room air
[2018-07-23] MEDS ORDERED: HYDROCODONE/APAP 5/325MG 1 EACH TABLET PO PRN (11:30)
[2018-07-23] MEDS ORDERED: ACETAMINOPHEN 325 MG TABLET PO PRN (11:30)
--- NOTE | 2018-07-23 11:40 | NUR ---
PRAWN TRAWLER HAND NOTES Dr. Sosa at bedside.
--- NOTE | 2018-07-23 15:33 | NUR ---
DAMPER WORKER NOTES Dr. Valencia at bedside to assess patient.
[2018-07-23 16:00] VITALS: BP 146/95
[2018-07-23] MEDS: CEFAZOLIN 1 GM in IV D5W 50 ML IV SCH (16:36)
[2018-07-23] MEDS: INSULIN REGULAR, HUMAN 100 UNIT/ML 3 ML VIAL SQ PRN (17:43)
--- NOTE | 2018-07-23 19:06 | NUR ---
TELERN CLOSING NOTES Patient in bed, awake and verbally responsive. Alert and oriented x4, Korean speaking with limited [place]. Complained of pain on left upper chest wall (surgical site) with help of pain mgmt. No SOB/labored breathing noted. Not in any type of distress. Breathing treatment on the clock. Afebrile. Tele: Afib; HR pacing in 50s. On ongoing potassium replacement (K-Dur) PO. All due meds given and tolerated. All needs anticipated and met. Bed in locked and lowest position with call light within reach. Will endorse to oncoming shift nurse
--- NOTE | 2018-07-23 19:27 | NUR ---
BALLISTIC TECHNICIAN OPENING NOTE RECEIVE PATIENT AWAKE IN BED, A/O X 3, NO SOB OR DISTRESS NOTED, CALL LIGHT WITHIN REACH. SAFETY MEASURES IMPLEMENTED. WILL CONTINUE TO MONITOR
[2018-07-23 20:00] VITALS: BP 125/52
[2018-07-23] MEDS: ZOLPIDEM TARTRATE 5 MG TABLET PO SCH (21:30)
[2018-07-23] MEDS: GABAPENTIN 300 MG CAPSULE PO SCH (21:30)
--- NOTE | 2018-07-23 21:46 | NUR ---
PT REFUSED SLIDING SCALE COVERAGE OF 2 UNITS DESPITE EXPLAINING RISKS AND BENEFITS PT A/O X3. PT STATED HE DOESNT NEED IT OF NOW. BLOOD SUGAR 139MG/DL
[2018-07-24] VITALS: BP 131/63
[2018-07-24] MEDS: ALBUTEROL FS 2.5 MG/3 ML VIAL.NEB NEB SCH ×2 (00:16→08:06)
[2018-07-24] MEDS: IPRATROPIUM NEB FS 0.5 MG/2.5 ML AMPUL.NEB NEB SCH ×2 (00:16→08:06)
[2018-07-24] MEDS: CEFAZOLIN 1 GM in IV D5W 50 ML IV SCH (01:24)
[2018-07-24 04:00] VITALS: BP 154/67
[2018-07-24] MEDS: BLOOD SUGAR DIAGNOSTIC 1 EACH STRIP VI SCH ×2 (06:02→11:26)
[2018-07-24] MEDS: INSULIN REGULAR, HUMAN 100 UNIT/ML 3 ML VIAL SQ PRN ×2 (06:03→11:26)
--- NOTE | 2018-07-24 06:17 | NUR ---
MS RN NOTES PT REMOVED I.V HEPLOCK PT REFUSED I.V INSERTION DESPITE EXPLAINING RISKS AND BENEFITS PER PT HE'S GOING HOME TODAY. OFFERED 3 TIMES STRONGLY REFUSED. HOSPITALIST MADE AWARE.
--- NOTE | 2018-07-24 06:21 | NUR ---
PRODUCT APPLICATIONS ENGINEER CLOSING NOTES ASLEEP AND EASILY AWAKEN, STABLE, TOLERATING ROOM AIR 98%. NOT IN DISTRESS. RESPIRATION EVEN AND UNLABORED. KEPT CLEAN AND DRY AND COMFORTABLE, ALL NURSING CARE RENDERED. NEEDS ATTENDED AND ANTICIPATED. V-PACING 52'S ON TELE MONITOR. ON LOW BED AT ALL TIMES TO ENSURE SAFETY. SAFE HAZARD FREE ENVIRONMENT PROVIDED. CALL LIGHT WITHIN EASY TO REACH. WILL ENDORSE NEXT SHIFT CONTINUITY OF CARE.
[2018-07-24 08:00] VITALS: BP 136/73
--- NOTE | 2018-07-24 08:00 | NUR ---
RN NOTES PATIENT IN BED RESTING NO SOB OR ACUTE DISTRESS NOTED. PATIENT ALERT, ORIENTED X3 HUNGARIAN SPEAKING. PATIENT WITH NO IV ACCESS REFUSES ACCESS STATES HE WILL BE DISCHARGED TODAY. BED IN LOW LOCKED POSITION. CALL LIGHT WITHIN REACH. WILL CONTINUE TO MONITOR.
[2018-07-24] MEDS: DOCUSATE SODIUM 100 MG CAPSULE PO SCH (08:32)
[2018-07-24] MEDS: POTASSIUM CHLORIDE 20 MEQ TAB.PRT.SR PO SCH (08:32)
[2018-07-24] MEDS: AMLODIPINE BESYLATE 5 MG TABLET PO SCH (08:32)
[2018-07-24 08:33] VITALS: BP 136/73
[2018-07-24] MEDS: BENAZEPRIL HCL 10 MG TABLET PO SCH (08:33)
[2018-07-24] MEDS: PANTOPRAZOLE 40 MG TABLET.DR PO SCH (08:33)
--- NOTE | 2018-07-24 09:00 | NUR ---
SOLDERING MACHINE FEEDER NOTES PATIENT SEEN AND EVALUATED BY DR. DIAS ORDERS TO DISCHARGE PATIENT IF CLEARED BY ATOMIC WELDER OR SURGEON. ORDERS NOTED AND CARRIED OUT.
[2018-07-24] MEDS ORDERED: GABA300C PO (09:01)
[2018-07-24] MEDS ORDERED: PANT40TA2 PO (09:01)
[2018-07-24] MEDS ORDERED: IPRA0.2S9 NEB (09:01)
[2018-07-24] MEDS ORDERED: ZOLP5TAB2 PO (09:01)
[2018-07-24] MEDS ORDERED: ALBUT2 NEB (09:01)
[2018-07-24] MEDS ORDERED: HYDR-3972 PO (09:01)
[2018-07-24] MEDS ORDERED: AMLO5TAB7 PO (09:01)
[2018-07-24] MEDS ORDERED: ACET325T53 PO (09:01)
[2018-07-24] MEDS ORDERED: Blood Sugar Diagnostic VI (09:01)
[2018-07-24] MEDS ORDERED: BENA10TA9 PO (09:01)
[2018-07-24] MEDS ORDERED: DOCU-141 PO (09:01)
[2018-07-24] MEDS ORDERED: APIXABAN 5 MG TABLET PO SCH (09:30)
--- NOTE | 2018-07-24 09:30 | NUR ---
ENGRAVER ORNAMENTAL DESIGN NOTES PATIENT SEEN AND EVALUATED BY DR. CHURCHILL CLEARED TO BE DISCHARGED STATES PATIENT DOES NOTE NEED TO BE SEEN BY SURGEON HE SPOKE TO SURGEON CLEARED TO BE DISCHARGED. NOTED AND CARRIED OUT.
--- NOTE | 2018-07-24 12:00 | NUR ---
RN NOTES PATIENT REFUSES FOR HOSPITAL TO MAKE FOLLOW UP CARDIOLOGY ANOINTMENT STATES HIS DAUGHTER IN [place] WILL MAKE AN ANOINTMENT FOR HIM WHEN HE GETS HOME SO SHE CAN TAKE HIM.
--- NOTE | 2018-07-24 15:00 | NUR ---
MS RN NOTES PATIENT DISCHARGED HOME WITH DAUGHTER AND . IN STABLE CONDITION. MD AWARE OF ALL ABNORMAL LABS. PATIENTS DAUGHTER STATES ALREADY HAS ANOINTMENT MADE WITH METAL MOCKUP MAKER AND SURGEON NEXT WEEK DOES NOT RECALL WHEN. DISCHARGE INSTRUCTIONS PROVIDED TO PATIENT AND DAUGHTER VERBALIZED UNDERSTANDING. DISCHARGE PROTOCOL FOLLOWED. PATIENT ESCORTED TO CAR BY DIABETES PHYSICIAN. PATIENT WITH NO PERIPHERAL IV. ID BAND REMOVED.
== END 2018-07-24 15:10 | disposition home or self-care (01) | DRG 242 ==
LOC: ER 18:37 → TELE 20:37 → MED 07-22 12:54 → TELE 07-22 15:25 → MED 07-24 08:55
PROVIDERS: ADMIT Family Medicine; ATTEND Family Medicine
PROC: 0JH604Z Insertion of Pacemaker, Single Chamber into Chest Subcutaneous Tissue and Fascia, Open Approach (ICD-10-PCS; principal; 2018-07-20)
PROC: 02HK3JZ Insertion of Pacemaker Lead into Right Ventricle, Percutaneous Approach (ICD-10-PCS; 2018-07-20)
DX: I48.91 Unspecified atrial fibrillation (principal); I50.43 Acute on chronic combined systolic (congestive) and diastolic (congestive) heart failure; I11.0 Hypertensive heart disease with heart failure; I25.5 Ischemic cardiomyopathy; D69.6 Thrombocytopenia, unspecified; E78.5 Hyperlipidemia, unspecified; I25.10 Atherosclerotic heart disease of native coronary artery without angina pectoris; Z96.653 Presence of artificial knee joint, bilateral; Z95.1 Presence of aortocoronary bypass graft; Z91.19 Patient's noncompliance with other medical treatment and regimen; Z86.73 Personal history of transient ischemic attack (TIA), and cerebral infarction without residual deficits; Z79.4 Long term (current) use of insulin; Z79.84 Long term (current) use of oral hypoglycemic drugs; Z79.82 Long term (current) use of aspirin; H54.7 Unspecified visual loss; H91.90 Unspecified hearing loss, unspecified ear; K08.109 Complete loss of teeth, unspecified cause, unspecified class; M19.90 Unspecified osteoarthritis, unspecified site; F03.90 Unspecified dementia, unspecified severity, without behavioral disturbance, psychotic disturbance, mood disturbance, and anxiety; E87.6 Hypokalemia; K21.9 Gastro-esophageal reflux disease without esophagitis; N40.0 Benign prostatic hyperplasia without lower urinary tract symptoms; Z82.49 Family history of ischemic heart disease and other diseases of the circulatory system; G47.33 Obstructive sleep apnea (adult) (pediatric); Z79.01 Long term (current) use of anticoagulants; Z91.11 Patient's noncompliance with dietary regimen; Z91.14 Patient's other noncompliance with medication regimen; I27.20 Pulmonary hypertension, unspecified; E66.9 Obesity, unspecified; E11.65 Type 2 diabetes mellitus with hyperglycemia; I49.5 Sick sinus syndrome; I35.0 Nonrheumatic aortic (valve) stenosis; J44.9 Chronic obstructive pulmonary disease, unspecified; F43.10 Post-traumatic stress disorder, unspecified
CPT/HCPCS: 36415; 71045-TC; 76700-TC; 80048-TC; 80053-TC; 80076-TC; 82150-TC; 82962-TC; 83540-TC; 83690-TC; 83735-TC; 83880; 84484-TC; 85025-TC; 85730-TC; 87081-TC; 93307-TC; 94760-TC; 94799-TC; A4606; J0690; J1815; J1940; J3490; J7060; Q9966; Z7610

== ENCOUNTER 2019-03-01 09:56 | Inpatient (IN) | payer MEDICARE, OTHER ==
[~2019-03-01] VITALS: Ht 172.7 cm; Wt 99.3 kg
[~2019-03-01 09:56] MED LIST changes: +ACET325T53 PO; +ALBUT2 NEB; +AMLO5TAB9 PO; +APIX5TAB PO; -ASPI-1169 PO; -ATOR10TA PO; +BENA10TA11 PO; +Blood Sugar Diagnostic VI; -CARV25TA PO; -CLON0.1T PO; +DOCU-141 PO; -GABA-534 PO; +GABA300C PO; +HYDR-3972 PO; -INSU100V11 SQ; +IPRA0.2S9 NEB; -LORA1TAB PO; -OXYC10TA49 PO; -OXYC30TA2 PO; +PANT40TA2 PO; +POTA-10 PO; -SITA100T PO; -TRAZ-182 PO; +ZOLP5TAB2 PO
--- NOTE | 2019-03-01 10:15 | NUR ---
SENT BY DR. KHAN FOR SOB, TO ER BED 11, HOOKED TO MONITOR, CHANGED TO GOWN, PROVIDED WITH WARM BLANKET, AWAITING MD FENTON.
--- NOTE | 2019-03-01 10:16 | NUR ---
DR LIU AT BEDSIDE
[2019-03-01 10:32] LABS: BASOPHILS # (AUTO) 0.1 /CMM (0.0-0.2); BASOPHILS % (AUTO) 1.1 % (0.0-2.0); EOSINOPHILS % (AUTO) 3.7 % (0.0-6.0); HEMATOCRIT 36 % (39-51); HEMOGLOBIN 12.7 g/dL (13.5-17.5); LYMPHOCYTES # (AUTO) 1.2 /CMM (0.8-4.8); LYMPHOCYTES % (AUTO) 20.8 % (20.0-44.0); MEAN CORPUSCULAR HGB CONC 35 g/dl (31.0-36.0); MEAN CORPUSCULAR VOLUME 93 fL (80-96); MONOCYTES # (AUTO) 0.6 /CMM (0.1-1.30); MONOCYTES % (AUTO) 9.7 % (2.0-12.0); NEUTROPHILS # (AUTO) 3.7 /CMM (1.8-8.9); NEUTROPHILS % (AUTO) 64.7 % (43.0-81.0); PLATELET COUNT (AUTO) 181 /CMM (150-450); RED BLOOD CELL COUNT(AUTO) 3.91 MIL/uL (4.5-6.0); WHITE BLOOD COUNT (AUTO) 5.7 K/uL (4.3-11.0)
[2019-03-01] MEDS ORDERED: BUME1TAB8 PO (10:35)
[2019-03-01] MEDS ORDERED: POTA10TA15 PO (10:35)
[2019-03-01] MEDS ORDERED: OXYC30TA2 PO (10:35)
[2019-03-01] MEDS ORDERED: CARV6.252 PO (10:35)
[2019-03-01] MEDS ORDERED: BENA40TA8 PO (10:35)
--- NOTE | 2019-03-01 10:35 | NUR ---
HARVEST WORKER FIELD CROP AT BEDSIDE.
[2019-03-01 10:39] LABS: CALCIUM, SERUM 8.8 mg/dL (8.5-10.1); CARBON DIOXIDE 25 mmol/L (21-32); CHLORIDE 105 mmol/L (98-107); CREATININE 1.3 mg/dL (0.6-1.3); GLUCOSE 104 mg/dL (74-106); POTASSIUM 3.8 mmol/L (3.5-5.1); SODIUM SERUM 140 mmol/L (136-145); UREA NITROGEN, BLOOD 18 mg/dL (7-18)
[2019-03-01] MEDS ORDERED: ZOLP5TAB2 PO (10:48)
[2019-03-01] MEDS ORDERED: APIX5TAB4 PO (10:48)
[2019-03-01] MEDS ORDERED: GABA-534 PO (10:48)
[2019-03-01 10:51] LABS: ALANINE AMINOTRANSFERASE 12 U/L (12-78); ALBUMIN 3.6 g/dL (3.4-5.0); ALKALINE PHOSPHATASE 99 U/L (46-116); ASPARTATE AMINOTRANSFERASE 13 U/L (15-37); B-TYPE NATRIURETIC PEPTIDE 5102 PG/ML (0-125); BILIRUBIN,DIRECT 0.3 mg/dL (0.0-0.2); BILIRUBIN,TOTAL 0.9 mg/dL (0.2-1.0); TOTAL PROTEIN, SERUM 8.1 g/dL (6.4-8.2)
--- NOTE | 2019-03-01 11:07 | NUR ---
PAGED DR CARMONA AND DR CHURCHILL
--- NOTE | 2019-03-01 11:11 | NUR ---
CALLED FOR TELE BED
--- NOTE | 2019-03-01 11:18 | NUR ---
116-2 RENETTA RN FOR REPORT
--- NOTE | 2019-03-01 11:27 | NUR ---
REPORT GIVEN TO RENETTA RN FOR ADMISSION
[2019-03-01] MEDS ORDERED: NITROGLYCERIN PACKET 1 GM PACKET ONE (11:30)
[2019-03-01] MEDS ORDERED: FUROSEMIDE 40 MG/4 ML VIAL IV ONE (11:30)
[2019-03-01] MEDS ORDERED: NITROGLYCERIN PACKET 1 GM PACKET TD ONE (11:30)
[2019-03-01] MEDS ORDERED: FUROSEMIDE 40 MG/4 ML VIAL ONE (11:30)
--- NOTE | 2019-03-01 11:33 | NUR ---
RN NOTES RECEIVED REPORT FROM KETAN ROSEN FOR AN 89 Y/O MALE COMING IN DUE TO SHORTNESS OF BREATH UNDER THE CARE OF DR. HAIR. BED PREPARED, BED ZERO OUT. AWAITING PATIENT' ARRIVAL
[2019-03-01 12:00] VITALS: BP 174/62
--- NOTE | 2019-03-01 12:15 | NUR ---
RN NOTES RECEIVED PATIENT FROM ER VIA GURNEY, PATIENT ABLE TO TRANSFER SELF FROM BED TO BED, ON ROOM AIR, NOT ON ANY FORM OF DISTRESS, NO SOB NOTED. VITAL SIGNS TAKEN AND NOTED. SKIN ASSESSMENT DONE: SKIN INTACT BUT ARE NOTED TO BE DRY. IV SITE NOTED ON THE LAC G 20: IN PLACE AND INTACT, PATENT ON FLUSHING. PATIENT ATTACHED TO THE MONITOR. ALL BELONGINGS ACCOUNTED FOR. ALL PERTINENT INFORMATION OBTAIN FROM PATIENT AND DAUGHTER (JENSEN) WHOSE AT THE BEDSIDE. PATIENT MADE COMFORTABLE AND WARMTH IN BED. ORIENTED TO FLOOR AND USE OF CALL LIGHT. ALL SAFETY MEASURES OBSERVED AND MAINTAINED. SR X2, BED LOW AND LOCKED POSITIONED. CALL LIGHT PLACED WITHIN REACH. WILL CONTINUE TO MONITOR AND ANTICIPATE NEEDS. AWAITING DR MCDONALD
[2019-03-01 13:00] VITALS: BP 139/82
[2019-03-01] MEDS ORDERED: DEXTROSE 50%-WATER 50 ML DISP.SYRIN IV PRN (15:30)
[2019-03-01 16:00] VITALS: BP_SYST 132; BP_SYST 175; BP_DIAS 68; BP_DIAS 89
--- NOTE | 2019-03-01 16:00 | NUR ---
RN NOTES RECEIVED ORDERS FROM DR. CAMARGO. ORDERS NOTED AND CARRIED OUT
[2019-03-01] MEDS ORDERED: BUMETANIDE (1 MG) 1 MG TABLET PO SCH (17:00)
[2019-03-01] MEDS ORDERED: APIXABAN 5 MG TABLET PO SCH (17:00)
[2019-03-01] MEDS ORDERED: APIXABAN 5 MG TABLET PO ONE (17:00)
[2019-03-01] MEDS ORDERED: BLOOD SUGAR DIAGNOSTIC 1 EACH STRIP IN SCH (17:00)
[2019-03-01] MEDS: BUMETANIDE INJ 0.25 MG/ML VIAL IV SCH (17:27)
[2019-03-01] MEDS: CARVEDILOL 6.25 MG TABLET PO SCH (17:28)
[2019-03-01 17:30] VITALS: BP 131/71
[2019-03-01] MEDS: GABAPENTIN 300 MG CAPSULE PO SCH (17:41)
[2019-03-01] MEDS ORDERED: INSULIN REGULAR, HUMAN 100 UNIT/ML 3 ML VIAL SQ SCH (18:00)
[2019-03-01] MEDS ORDERED: INSULIN REGULAR, HUMAN 100 UNIT/ML 3 ML VIAL SQ PRN (18:00)
--- NOTE | 2019-03-01 19:26 | NUR ---
RN NOTES ENDORSED FOR CONTINUITY OF CAREE. ALL NURSING NEEDS ATTENDED AND MET. SAFETY MEASURES IN PLACE AT ALL TIMES. CALL LIGHT WITHIN REACH
[2019-03-01 20:00] VITALS: BP 146/68
[2019-03-01] MEDS ORDERED: IPRATROPIUM/ALBUTEROL INHALER IH SCH (21:00)
[2019-03-01] MEDS ORDERED: BUMETANIDE INJ 0.25 MG/ML VIAL IV SCH (22:00)
[2019-03-01] MEDS ORDERED: BUMETANIDE INJ 0.25 MG/ML VIAL IV ONE (22:00)
[2019-03-01] MEDS: ZOLPIDEM TARTRATE 5 MG TABLET PO SCH (22:51)
[2019-03-01] MEDS: SPIRONOLACTONE 25 MG TABLET PO SCH (22:52)
[2019-03-01] MEDS ORDERED: FLUTICASONE/SALMETEROL DISKUS IH SCH (23:00)
[2019-03-01] MEDS: ALBUTEROL FS 2.5 MG/0.5 ML VIAL.NEB NEB SCH (23:30)
[2019-03-01] MEDS: IPRATROPIUM NEB FS 0.5 MG/2.5 ML AMPUL.NEB NEB SCH (23:30)
[2019-03-02] VITALS: BP 147/75
[2019-03-02] MEDS: BLOOD SUGAR DIAGNOSTIC 1 EACH STRIP IN SCH ×5 (00:40→23:19)
[2019-03-02 04:00] VITALS: BP 129/62
[2019-03-02 06:26] LABS: BASOPHILS # (AUTO) 0.1 /CMM (0.0-0.2); EOSINOPHILS % (AUTO) 5.2 % (0.0-6.0); HEMATOCRIT 36 % (39-51); HEMOGLOBIN 12.3 g/dL (13.5-17.5); LYMPHOCYTES # (AUTO) 1.2 /CMM (0.8-4.8); LYMPHOCYTES % (AUTO) 22.9 % (20.0-44.0); MEAN CORPUSCULAR HGB CONC 34 g/dl (31.0-36.0); MEAN CORPUSCULAR VOLUME 93 fL (80-96); MONOCYTES # (AUTO) 0.6 /CMM (0.1-1.30); NEUTROPHILS # (AUTO) 3.2 /CMM (1.8-8.9); NEUTROPHILS % (AUTO) 59.9 % (43.0-81.0); PLATELET COUNT (AUTO) 183 /CMM (150-450); WHITE BLOOD COUNT (AUTO) 5.4 K/uL (4.3-11.0)
[2019-03-02] MEDS: ALBUTEROL FS 2.5 MG/0.5 ML VIAL.NEB NEB SCH ×3 (07:08→23:18)
[2019-03-02] MEDS: IPRATROPIUM NEB FS 0.5 MG/2.5 ML AMPUL.NEB NEB SCH ×3 (07:08→23:18)
[2019-03-02 07:14] LABS: ALANINE AMINOTRANSFERASE 11 U/L (12-78); ALBUMIN 3.6 g/dL (3.4-5.0); ALKALINE PHOSPHATASE 95 U/L (46-116); ASPARTATE AMINOTRANSFERASE 10 U/L (15-37); CALCIUM, SERUM 8.8 mg/dL (8.5-10.1); CARBON DIOXIDE 26 mmol/L (21-32); CHLORIDE 101 mmol/L (98-107); CREATININE 1.3 mg/dL (0.6-1.3); GLUCOSE 91 mg/dL (74-106); POTASSIUM 3.1 mmol/L (3.5-5.1); SODIUM SERUM 138 mmol/L (136-145); TOTAL PROTEIN, SERUM 7.9 g/dL (6.4-8.2); UREA NITROGEN, BLOOD 19 mg/dL (7-18)
[2019-03-02 07:24] LABS: IRON, SERUM 51 ug/dl (50-175); TOTAL IRON BINDING CAPACITY 289 ug/dl (250-450)
--- NOTE | 2019-03-02 07:30 | NUR ---
RN NOTES RECEIVED PATIENT IN BED, ASLEEP BUT EASILY AROUSES TO VOICE, NOT ON ANY FORM OF DISTRESS, ON RA, BREATHING UNLABORED, SATING FINE. NO SIGNS OF PAIN NOTED AT THIS TIME. A FIB ON THE MONITOR WITH HR ON THE 60'S. IV ACCESS ON THE LAC G 20: IN PLACE AND INTACT, PATENT ON FLUSHING, NO SIGN OF INFECTION OR INFILTRATION NOTED. PATIENT ENCOURAGE TO CALL FOR HELP AND ASSISTANCE. CALL LIGHT PLACED WITHIN REACH, SAFETY MEASURES OBSERVED AND MAINTAINED. WILL CONTINUE TO MONITOR AND ANTICIPATE NEEDS
[2019-03-02 08:00] VITALS: BP 142/73
--- NOTE | 2019-03-02 08:44 | NUR ---
RT NOTE: RECEIVED PT ON ROOM AIR WITH NO RESPIRATORY DISTRESS NOTED. PT AWAKE AND ALERT. HOUSTON BAG @ BEDSIDE. WILL CONTINUE TO MONITOR. Addendum: 03/02/19 at 0845 by LUDWIN FAYE RT Amended: Links added.
[2019-03-02] MEDS: HOME MED - ELIQUIS 5MG PO SCH ×2 (08:58→16:33)
[2019-03-02] MEDS: BUMETANIDE INJ 0.25 MG/ML VIAL IV SCH ×2 (08:59→16:33)
[2019-03-02] MEDS: SPIRONOLACTONE 25 MG TABLET PO SCH (08:59)
[2019-03-02] MEDS: GABAPENTIN 300 MG CAPSULE PO SCH ×2 (08:59→16:34)
[2019-03-02] MEDS: POTASSIUM CHLORIDE 10 MEQ TABLET.SA PO SCH (08:59)
[2019-03-02] MEDS: AMLODIPINE BESYLATE 10 MG TABLET PO SCH (09:00)
[2019-03-02] MEDS: CARVEDILOL 6.25 MG TABLET PO SCH (09:00)
[2019-03-02] MEDS ORDERED: AMLODIPINE BESYLATE 5 MG TABLET PO SCH (09:00)
[2019-03-02] MEDS ORDERED: BENAZEPRIL HCL 20 MG TABLET PO SCH (09:00)
[2019-03-02] MEDS ORDERED: BUMETANIDE INJ 0.25 MG/ML VIAL IV SCH (09:00)
[2019-03-02] MEDS: BENAZEPRIL HCL 20 MG TABLET PO SCH (09:00)
[2019-03-02] MEDS ORDERED: POTASSIUM CHLORIDE 20 MEQ TAB.PRT.SR PO ONE (09:30)
[2019-03-02] MEDS: FLUTICASONE/VILANTEROL 1 EACH BLST.W.DEV IH SCH (10:49)
[2019-03-02 12:00] VITALS: BP 112/71
[2019-03-02 16:00] VITALS: BP 123/64
--- NOTE | 2019-03-02 16:16 | NUR ---
RN NOTES RELAYED TSH LEVEL TO DR. CAMARGO AT 4.5. OBTAINED ORDER FOR LEVOTHYROXINE 0.025 MG PO DAILY. ORDER NOTED AND CARRIED OUT
[2019-03-02] MEDS ORDERED: LEVOTHYROXINE SODIUM 25 MCG TABLET PO SCH (16:30)
[2019-03-02] MEDS: LEVOTHYROXINE SODIUM 25 MCG TABLET PO SCH (17:40)
--- NOTE | 2019-03-02 19:00 | NUR ---
TELE/RN ENTRY NOTES PATIENT RECEIVED SITTING ON CHAIR IN HIS ROOM. NO S/S OF ACUTE DISTRESS NOTED. RESPIRATION EVEN AND UNLABORED. NO C/O AND PAIN OR DISCOMFORT AT THIS TIME. NO SOB NOTED. BREATH SOUNDS NOTED CLEAR BILATERALLY. PATIENT ALERT AND ORIENTED X3, ABLE TO MAKE NEED KNOWN. SAFETY PRECAUTIONS MAINTAINED. CALL LIGHT WITHIN EASY REACH. WILL CONTINUE TO MONITOR PATIENT PER PLAN OF CARE.
[2019-03-02 20:00] VITALS: BP 104/60
[2019-03-02] MEDS: ZOLPIDEM TARTRATE 5 MG TABLET PO SCH (21:12)
[2019-03-02] MEDS ORDERED: INSULIN REGULAR, HUMAN 100 UNIT/ML 3 ML VIAL SQ PRN (23:30)
[2019-03-03] VITALS: BP 115/66
--- NOTE | 2019-03-03 00:30 | NUR ---
PATIENT NOTED WONDERING AROUND IN THE HALLWAY, NURSING STATION. ATTEMPTED TO REORIENT THE PATIENT AND ASSISTED HIM BACK IN TO HIS ROOM. PATIENT STARTED TO GET AGITATED AND STARTED SWINGING BED BLANKETS TOWARD THE STAFF. ATTEMPTED TO REDIRECT THE PATIENT. PATIENT APPEARED CONFUSED AND CONTINUE TO SWING BLANKET. PATIENT HELD ON TO THE CALL LIGHT AND KEPT PRESSING THE CALL LIGHT B[place]ON. PATIENT WAS INCREASINGLY BECOMING MORE AGITATED AND STARTED THROWING FOOD ITEMS ON THE STAFF. KEPT MONITORING PATIENT BEHAVIOR AND CONTINUE TO REDIRECT, AND REORIENT THE PATIENT. PATIENT WAS NOT COOPERATING AND PICKED UP HIS CANE AND ATTEMPTED TO THROW AT THE STAFF. 0105. BERNARDINO BETANCOURT WAS CALLED AT THIS TIME WITH NURSING JOURNALISM INSTRUCTOR PRESENT.
--- NOTE | 2019-03-03 01:20 | NUR ---
RN SPOKE TO MD DIAS , MADE AWARE OF PT'S BEHAVIOR, VS STABLE, BERNARDINO DURON CALLED, PT VERY AGGRESSIVE, CONFUSED, WITH NEW ORDER TO GIVE ATIVAN 1MG IVP TIMES ONE NOW AND GIVE ANOTHER DOSE OF ATIVAN 1MG IF BEHAVIOR PERSISTS. ALSO APPLY RESTRAINTS BILATERAL SOFT . WILL CONTINUE TO MONITOR.
[2019-03-03] MEDS ORDERED: LORAZEPAM INJ 2 MG/ML VIAL IV ONE ×2 (01:30→02:00)
[2019-03-03 04:00] VITALS: BP 124/43
--- NOTE | 2019-03-03 06:58 | NUR ---
TELE/RN EXIT NOTES. PATIENT IN BED, RESTING COMFORTABLY. NO S/S OF ACUTE DISTRESS NOTED. RESPIRATION EVEN AND UNLABORED. NO SOB NOTED. PATIENT CONTINUE TO BE REMAIN ON RESTRAIN DUE TO CONTINUES EPISODES OF TRYING TO PULL THE IV LINE. PATIENT NOTED WITH NO S/S OF PAIN OR DISCOMFORT AT THIS TIME. SKIN CHECK DONE RESTRAIN PROTOCOL. IV SITE PATENT, FLUSHED, NOTED WITH NO S/S OF INFECTION. KEPT PATIENT CLEAN AND DRY. SAFETY MAINTAINED. WILL ENDORSED TO THE AM SHIFT NURSE TO CONTINUE TO MONITOR PATIENT PER PLAN OF CARE.
[2019-03-03] MEDS: LEVOTHYROXINE SODIUM 25 MCG TABLET PO SCH (07:13)
[2019-03-03] MEDS: BLOOD SUGAR DIAGNOSTIC 1 EACH STRIP IN SCH ×4 (07:21→22:19)
--- NOTE | 2019-03-03 07:24 | NUR ---
INITIAL PATIENT IN BED, RESTING COMFORTABLY. NO S/S OF ACUTE DISTRESS NOTED. RESPIRATION EVEN AND UNLABORED. NO SOB NOTED. PATIENT CONTINUE TO BE REMAIN ON RESTRAIN DUE TO CONTINUES EPISODES OF TRYING TO PULL THE IV LINE. PATIENT NOTED WITH NO S/S OF PAIN OR DISCOMFORT AT THIS TIME. SKIN CHECK DONE RESTRAIN PROTOCOL. IV SITE 20G PATENT, FLUSHED, NOTED WITH NO S/S OF INFECTION. WILL CONTINUE TO MONITOR PATIENT PER PLAN OF CARE.
[2019-03-03] MEDS: ALBUTEROL FS 2.5 MG/0.5 ML VIAL.NEB NEB SCH ×3 (07:32→22:59)
[2019-03-03 07:33] LABS: BASOPHILS % (AUTO) 0.6 % (0.0-2.0); EOSINOPHILS % (AUTO) 3.9 % (0.0-6.0); HEMATOCRIT 37 % (39-51); HEMOGLOBIN 12.5 g/dL (13.5-17.5); LYMPHOCYTES # (AUTO) 1.6 /CMM (0.8-4.8); MEAN CORPUSCULAR HGB CONC 34 g/dl (31.0-36.0); MEAN CORPUSCULAR VOLUME 93 fL (80-96); MONOCYTES # (AUTO) 0.9 /CMM (0.1-1.30); NEUTROPHILS # (AUTO) 4.4 /CMM (1.8-8.9); NEUTROPHILS % (AUTO) 61.5 % (43.0-81.0); PLATELET COUNT (AUTO) 193 /CMM (150-450); RED BLOOD CELL COUNT(AUTO) 3.96 MIL/uL (4.5-6.0); WHITE BLOOD COUNT (AUTO) 7.1 K/uL (4.3-11.0)
[2019-03-03] MEDS: IPRATROPIUM NEB FS 0.5 MG/2.5 ML AMPUL.NEB NEB SCH ×3 (07:33→22:59)
[2019-03-03 07:36] LABS: ALANINE AMINOTRANSFERASE 12 U/L (12-78); ALBUMIN 3.7 g/dL (3.4-5.0); ALKALINE PHOSPHATASE 92 U/L (46-116); ASPARTATE AMINOTRANSFERASE 12 U/L (15-37); BILIRUBIN,TOTAL 0.9 mg/dL (0.2-1.0); CALCIUM, SERUM 8.9 mg/dL (8.5-10.1); CARBON DIOXIDE 26 mmol/L (21-32); CHLORIDE 100 mmol/L (98-107); CREATININE 1.6 mg/dL (0.6-1.3); GLUCOSE 95 mg/dL (74-106); POTASSIUM 3.4 mmol/L (3.5-5.1); SODIUM SERUM 138 mmol/L (136-145); UREA NITROGEN, BLOOD 29 mg/dL (7-18)
[2019-03-03 08:00] VITALS: BP 103/44
[2019-03-03] MEDS: FLUTICASONE/VILANTEROL 1 EACH BLST.W.DEV IH SCH (09:06)
[2019-03-03] MEDS: HOME MED - ELIQUIS 5MG PO SCH ×2 (09:06→17:56)
[2019-03-03] MEDS: GABAPENTIN 300 MG CAPSULE PO SCH (09:07)
[2019-03-03] MEDS: BUMETANIDE INJ 0.25 MG/ML VIAL IV SCH (09:07)
[2019-03-03] MEDS: POTASSIUM CHLORIDE 10 MEQ TABLET.SA PO SCH ×2 (09:07→15:14)
[2019-03-03] MEDS: SPIRONOLACTONE 25 MG TABLET PO SCH (09:08)
[2019-03-03] MEDS: BENAZEPRIL HCL 20 MG TABLET PO SCH (09:12)
[2019-03-03] MEDS: AMLODIPINE BESYLATE 10 MG TABLET PO SCH (10:29)
--- NOTE | 2019-03-03 10:50 | NUR ---
DAUGHTER AT BEDSIDE SPOKE WITH MD CAMARGO SETH DOSAGE CHANGED TO 100 MG TO BE GIVEN WITH AMBIEN AT NIGHT, DAUGHTER HAS TELEPHONE NUMBER ON BOARD AND WANTS TO BE CALL AT ANY TIME 24 HOURS. PT WAS AGGRESSIVE NEEDING RESTRAINTS TRIED TO HIT AND KICK HOWEVER WHEN DAUGHTER PRESENT PT CALM RESTRAINT S REMOVED PT CLEANED LINEN CHANGE PT UP IN CHAIR.
[2019-03-03] MEDS ORDERED: POTASSIUM CHLORIDE 20 MEQ TAB.PRT.SR PO SCH (11:00)
[2019-03-03 12:00] VITALS: BP 109/81
--- NOTE | 2019-03-03 12:46 | NUR ---
DR. CRUZ SEEN PATIENT ,UNABLE TO TALK TO PT. VERY SLEEPY.PER MD HE WILL CALL DAUGHTER ,ALSO REVIEWED MEDS GIVEN LAST NIGHT AND PATIENT S/P CODE DURON.
[2019-03-03 16:00] VITALS: BP_SYST 136; BP_SYST 138; BP_DIAS 69
--- NOTE | 2019-03-03 16:21 | NUR ---
PATIENT S/P CODE DURON LAST NIGHT ,DAUGHTER AT BEDSIDE INFORMED ABOUT HTE NEW MEDICINE SEROQUEL PRESCRIBED BY DR. SHAW PER DAUGHTER "DO NOT GIVE HIM AMBIEN,SEROQUEL,ATIVAN" ONLY GAPAPENTIN 100MG AT BEDTIME AND IF ANY BEHAVIORAL ISSUE TO CALL DAUGHTER ANYTIME AND WILL COME AND SEE PT./24 HOURS AND MD MADE AWARE.
--- NOTE | 2019-03-03 16:29 | NUR ---
DAUGHTER ALSO DOES NOT WANT RESTRAINT.NURSING SUP NOTIFIED GOT ORDER FOR SITTER.
--- NOTE | 2019-03-03 16:31 | NUR ---
DR. SHAW ORDERS SEROQUEL AND REFERRRED TO DR. CAMARGO IF OK .SPOKE WITH DR. CAMARGO AND OK FOR SITTER AND OK W/ GABPENTIN 100MG TONIGHT AND DO NOT D/C SEROQUEL PUT ON HOLD UNTIL HE SEE PT.
--- NOTE | 2019-03-03 16:43 | NUR ---
SPOKE W/ PHARMACIST AND OBTAINED ORDERS TO START SEROQUEL TOMRW PENDING FAMILY APPROVAL PER DR. CAMARGO.
--- NOTE | 2019-03-03 16:49 | NUR ---
PER FAMILY THEY CANNOT STAY TONIGHT DUE TO PERSONAL REASON BUT THEY WILL COME IF CALLED .
--- NOTE | 2019-03-03 18:19 | NUR ---
CLOSING ENDORSED FOR CONTINUITY OF CARE. ALL NURSING NEEDS ATTENDED AND MET. SAFETY MEASURES IN PLACE AT ALL TIMES. CALL LIGHT WITHIN REACH
--- NOTE | 2019-03-03 19:00 | NUR ---
TUBE INSPECTOR OPENING NOTES PATIENT IN BED, RESTING COMFORTABLY. FAMILY AT BEDSIDE. NO S/S OF ACUTE DISTRESS NOTED. ON RA, RESPIRATION EVEN AND UNLABORED. NO SOB NOTED. PATIENT NOTED WITH NO S/S OF PAIN OR DISCOMFORT AT THIS TIME. IV SITE 20G PATENT, FLUSHED, NOTED WITH NO S/S OF INFECTION. SITTER AT BEDSIDE FOR PATIENT SAFETY. WILL CONTINUE TO MONITOR PATIENT CLOSELY. PER PATIENT'S DAUGHTER, DO NOT GIVE SEROQUEL TO PATIENT. WILL HOLD SEROQUEL PER FAMILY REQUEST.
[2019-03-03 20:00] VITALS: BP 119/63
[2019-03-03] MEDS ORDERED: QUETIAPINE FUMARATE 25 MG TABLET PO SCH ×2 (22:00)
[2019-03-03] MEDS ORDERED: GABAPENTIN 100 MG CAPSULE PO SCH (22:00)
[2019-03-04] VITALS: BP 114/55
[2019-03-04 04:00] VITALS: BP 118/60
[2019-03-04 06:48] LABS: ALANINE AMINOTRANSFERASE 13 U/L (12-78); ALBUMIN 3.3 g/dL (3.4-5.0); ALKALINE PHOSPHATASE 98 U/L (46-116); ASPARTATE AMINOTRANSFERASE 20 U/L (15-37); BILIRUBIN,TOTAL 0.6 mg/dL (0.2-1.0); CALCIUM, SERUM 8.5 mg/dL (8.5-10.1); CARBON DIOXIDE 24 mmol/L (21-32); CHLORIDE 103 mmol/L (98-107); CREATININE 1.5 mg/dL (0.6-1.3); GLUCOSE 105 mg/dL (74-106); POTASSIUM 3.9 mmol/L (3.5-5.1); SODIUM SERUM 138 mmol/L (136-145); TOTAL PROTEIN, SERUM 7.5 g/dL (6.4-8.2); UREA NITROGEN, BLOOD 32 mg/dL (7-18)
[2019-03-04 07:02] LABS: BASOPHILS # (AUTO) 0.1 /CMM (0.0-0.2); BASOPHILS % (AUTO) 0.9 % (0.0-2.0); EOSINOPHILS % (AUTO) 4.5 % (0.0-6.0); HEMATOCRIT 35 % (39-51); HEMOGLOBIN 11.8 g/dL (13.5-17.5); LYMPHOCYTES # (AUTO) 1.6 /CMM (0.8-4.8); LYMPHOCYTES % (AUTO) 24.9 % (20.0-44.0); MEAN CORPUSCULAR HGB CONC 34 g/dl (31.0-36.0); MEAN CORPUSCULAR VOLUME 94 fL (80-96); MONOCYTES # (AUTO) 0.8 /CMM (0.1-1.30); MONOCYTES % (AUTO) 13.1 % (2.0-12.0); NEUTROPHILS # (AUTO) 3.6 /CMM (1.8-8.9); NEUTROPHILS % (AUTO) 56.6 % (43.0-81.0); PLATELET COUNT (AUTO) 183 /CMM (150-450); RED BLOOD CELL COUNT(AUTO) 3.71 MIL/uL (4.5-6.0); WHITE BLOOD COUNT (AUTO) 6.4 K/uL (4.3-11.0)
--- NOTE | 2019-03-04 07:03 | NUR ---
BACK STAYER CLOSING NOTES PATIENT SLEEPING IN BED, BUT EASY TO AROUSE. ON RA, RESPIRATIONS EVEN AND UNLABORED. NO ACUTE CHANGES THROUGHOUT SHIFT. ON TELE MONITOR V-PACING WITH HR 60. ALL MD ORDERS ATTENDED. ALL NEEDS ANTICIPATED AND MET. CALL LIGHT WITHIN REACH AND SAFETY MEASURES MAINTAINED. SITTER AT BEDSIDE FOR PATIENT SAFETY. WILL ENDORSE TO AM RN FOR SHAUNA.
--- NOTE | 2019-03-04 07:20 | NUR ---
LEAD INSPECTOR OPENING NOTES PATIENT IN BED, RESTING COMFORTABLY. A/OX2-3, EPISODES OF CONFUSION. NO S/S OF ACUTE DISTRESS NOTED. ON RA, 98% O2SAT, RESPIRATION EVEN AND UNLABORED. NO SOB NOTED. NO S/S OF PAIN OR DISCOMFORT AT THIS TIME. IV SITE 20G INTACT AND PATENT, NO INFILTRATION. SITTER AT BEDSIDE FOR PATIENT SAFETY. BED IN LOW/LOCKED POSITION, SIDERAILS UPX2, CALL LIGHT IN REACH. WILL CONTINUE TO MONITOR ACCORDINGLY.
[2019-03-04] MEDS: IPRATROPIUM NEB FS 0.5 MG/2.5 ML AMPUL.NEB NEB SCH ×2 (07:26→16:24)
[2019-03-04] MEDS: ALBUTEROL FS 2.5 MG/0.5 ML VIAL.NEB NEB SCH ×2 (07:26→16:24)
[2019-03-04 08:39] VITALS: BP 120/70
[2019-03-04] MEDS: POTASSIUM CHLORIDE 10 MEQ TABLET.SA PO SCH (08:57)
[2019-03-04] MEDS: SPIRONOLACTONE 25 MG TABLET PO SCH (08:57)
[2019-03-04] MEDS: LEVOTHYROXINE SODIUM 25 MCG TABLET PO SCH (08:58)
[2019-03-04 08:59] VITALS: BP 120/70
[2019-03-04] MEDS: BENAZEPRIL HCL 20 MG TABLET PO SCH (08:59)
[2019-03-04] MEDS: AMLODIPINE BESYLATE 10 MG TABLET PO SCH (08:59)
[2019-03-04] MEDS: FLUTICASONE/VILANTEROL 1 EACH BLST.W.DEV IH SCH (09:00)
[2019-03-04] MEDS ORDERED: BUMETANIDE (1 MG) 1 MG TABLET PO SCH ×3 (09:00)
[2019-03-04] MEDS: BLOOD SUGAR DIAGNOSTIC 1 EACH STRIP IN SCH ×2 (09:00→15:09)
[2019-03-04] MEDS: HOME MED - ELIQUIS 5MG PO SCH (09:01)
--- NOTE | 2019-03-04 14:45 | NUR ---
DISCHARGED PATIENT IN STABLE CONDITION PICKED UP BY DAUGHTER. DISCHARGE INSTRUCTION GIVEN TO DAUGHTER AND PATIENT, VERBALIZED UNDERSTANDING. DC PAPERWORK GIVEN. ALL BELONGINGS RETURNED, FORMS SIGNED. REMOVED IV ACCESS, NO COMPLICATIONS. REMOVED NAME BAND. REFUSED PHOTO
--- NOTE | 2019-03-04 14:50 | NUR ---
RN NOTES PATIENT LEFT MEDICATION ELIQUIS. CALLED PATIENT'S DAUGHTER AND SHE WILL PICK IT UP TOMORROW. INSTRUCTED PATIENT'S DAUGHTER TO HEAT TREAT TECHNICIAN IN NURSING STATION. JENSEN [phone] DAUGHTER
[2019-03-04] MEDS ORDERED: GABAPENTIN 100 MG CAPSULE PO SCH (22:00)
[2019-03-04] MEDS ORDERED: QUETIAPINE FUMARATE 25 MG TABLET PO SCH (22:00)
[2019-03-31] MEDS ORDERED: BUME1TAB8 PO (12:43)
== END 2019-03-04 17:48 | disposition home health service (06) | DRG 291 ==
LOC: ER 09:56 → TELE1 11:47 → MEDSG1 03-04 10:09
PROVIDERS: ADMIT Family Medicine; ATTEND Family Medicine
DX: I13.0 Hypertensive heart and chronic kidney disease with heart failure and stage 1 through stage 4 chronic kidney disease, or unspecified chronic kidney disease (principal); I50.23 Acute on chronic systolic (congestive) heart failure; F05 Delirium due to known physiological condition; I25.5 Ischemic cardiomyopathy; I25.10 Atherosclerotic heart disease of native coronary artery without angina pectoris; I48.2 Chronic atrial fibrillation; Z86.73 Personal history of transient ischemic attack (TIA), and cerebral infarction without residual deficits; F03.90 Unspecified dementia, unspecified severity, without behavioral disturbance, psychotic disturbance, mood disturbance, and anxiety; K21.9 Gastro-esophageal reflux disease without esophagitis; N18.9 Chronic kidney disease, unspecified; J44.9 Chronic obstructive pulmonary disease, unspecified; N40.0 Benign prostatic hyperplasia without lower urinary tract symptoms; Z95.1 Presence of aortocoronary bypass graft; Z91.19 Patient's noncompliance with other medical treatment and regimen; Z96.653 Presence of artificial knee joint, bilateral; I27.20 Pulmonary hypertension, unspecified; E66.9 Obesity, unspecified; E11.22 Type 2 diabetes mellitus with diabetic chronic kidney disease; E78.5 Hyperlipidemia, unspecified; E87.6 Hypokalemia; D69.6 Thrombocytopenia, unspecified; G47.33 Obstructive sleep apnea (adult) (pediatric); Z79.01 Long term (current) use of anticoagulants; M19.90 Unspecified osteoarthritis, unspecified site; F41.9 Anxiety disorder, unspecified; Z68.33 Body mass index [BMI] 33.0-33.9, adult; I07.1 Rheumatic tricuspid insufficiency; F29 Unspecified psychosis not due to a substance or known physiological condition; H54.7 Unspecified visual loss
CPT/HCPCS: 36415; 71045-TC; 71046; 80048-TC; 80053-TC; 80076-TC; 82378; 82962-TC; 83540-TC; 83735-TC; 83880; 84443-TC; 84484-TC; 85025-TC; 85730-TC; 87081-TC; 94799-TC; G0378; J1815; J1940; J2060; J3490

== ENCOUNTER 2019-03-29 10:34 | Inpatient (IN) | payer MEDICARE, OTHER ==
[~2019-03-29] VITALS: Ht 165.1 cm; Wt 102.1 kg
[~2019-03-29 10:34] MED LIST changes: -ACET325T53 PO; -ALBUT2 NEB; -APIX5TAB PO; +APIX5TAB4 PO; -BENA10TA11 PO; -BENA20TA78 PO; +BENA40TA8 PO; +BUME1TAB4 PO; -Blood Sugar Diagnostic VI; +CARV6.252 PO; -DOCU-141 PO; -DOCU-270 PO; +GABA-534 PO; -GABA300C PO; -HYDR-3972 PO; -IPRA0.2S9 NEB; +OXYC30TA2 PO; -PANT40TA2 PO; -POTA-10 PO; +POTA10TA15 PO; -ZOLP10TA2 PO
--- NOTE | 2019-03-29 10:55 | NUR ---
DR LIU AT BEDSIDE FOR EVAL.
--- NOTE | 2019-03-29 11:01 | NUR ---
sent by Dr. Honeycutt for evaluation of progressive dyspnea x 2 days with weakness
[2019-03-29 11:09] LABS: BASOPHILS % (AUTO) 0.4 % (0.0-2.0); EOSINOPHILS % (AUTO) 2.8 % (0.0-6.0); HEMATOCRIT 39 % (39-51); HEMOGLOBIN 13.4 g/dL (13.5-17.5); LYMPHOCYTES # (AUTO) 1.2 /CMM (0.8-4.8); LYMPHOCYTES % (AUTO) 17.9 % (20.0-44.0); MEAN CORPUSCULAR HGB CONC 35 g/dl (31.0-36.0); MEAN CORPUSCULAR VOLUME 93 fL (80-96); MONOCYTES # (AUTO) 0.6 /CMM (0.1-1.30); MONOCYTES % (AUTO) 9.8 % (2.0-12.0); NEUTROPHILS # (AUTO) 4.6 /CMM (1.8-8.9); NEUTROPHILS % (AUTO) 69.1 % (43.0-81.0); PLATELET COUNT (AUTO) 188 /CMM (150-450); RED BLOOD CELL COUNT(AUTO) 4.19 MIL/uL (4.5-6.0); WHITE BLOOD COUNT (AUTO) 6.6 K/uL (4.3-11.0)
[2019-03-29 11:20] LABS: CALCIUM, SERUM 9.1 mg/dL (8.5-10.1); CARBON DIOXIDE 23 mmol/L (21-32); CHLORIDE 102 mmol/L (98-107); CREATININE 1.4 mg/dL (0.6-1.3); GLUCOSE 112 mg/dL (74-106); POTASSIUM 3.9 mmol/L (3.5-5.1); SODIUM SERUM 138 mmol/L (136-145); UREA NITROGEN, BLOOD 22 mg/dL (7-18)
[2019-03-29 11:32] LABS: ALANINE AMINOTRANSFERASE 12 U/L (12-78); ALKALINE PHOSPHATASE 105 U/L (46-116); ASPARTATE AMINOTRANSFERASE 12 U/L (15-37); B-TYPE NATRIURETIC PEPTIDE 5419 PG/ML (0-125); BILIRUBIN,DIRECT 0.2 mg/dL (0.0-0.2); BILIRUBIN,TOTAL 0.9 mg/dL (0.2-1.0); TOTAL PROTEIN, SERUM 8.9 g/dL (6.4-8.2)
--- NOTE | 2019-03-29 11:48 | NUR ---
CALLED NURSING SUP. FOR TELE BED
[2019-03-29 12:00] VITALS: BP 145/78
[2019-03-29] MEDS ORDERED: FUROSEMIDE 40 MG/4 ML VIAL IV ONE (12:00)
[2019-03-29] MEDS ORDERED: NITROGLYCERIN PACKET 1 GM PACKET TD ONE (12:00)
[2019-03-29] MEDS ORDERED: FUROSEMIDE 20 MG/2 ML VIAL ONE (12:05)
[2019-03-29] MEDS ORDERED: NITROGLYCERIN PACKET 1 GM PACKET ONE (12:05)
--- NOTE | 2019-03-29 12:20 | NUR ---
OUTBOUND TELEMARKETER NOTES RECEIVED REPORT FROM HARDEEP. PATIENT ARRIVED TO ROOM VIA WHEELCHAIR. PATIENT CAN AMBULATE WITH ASSISTANCE. PATIENT VITAL SIGNS ARE WITHIN NORMAL LIMITS. PATIENT IS ON CARDIAC MONITORING. PATIENT IS IN NO PAIN AT THIS TIME. PATIENT BREATHING IS EVEN AND UNLABORED. PATIENT BREATHING ON ROOM AIR SATURATING >95% O2. WITH NO ACUTE DISTRESS OR SOB NOTED. PATIENT BED IS LOCKED AND LOWEST POSITION. MD NOTIFIED AND MADE AWARE OF PATIENTS ARRIVAL. CALL LIGHT WITHIN REACH. WILL CONTINUE TO MONITOR.
--- NOTE | 2019-03-29 12:21 | NUR ---
TELE 314
--- NOTE | 2019-03-29 12:27 | NUR ---
REPORT GIVEN TO LAZARUS ACEVES FOR SHAUNA
[2019-03-29 16:00] VITALS: BP 114/65
--- NOTE | 2019-03-29 17:53 | NUR ---
PULLMAN CLERK NOTES SPOKE WITH DR. CAMARGO, HE WILL COME BY LATER THIS EVENING FOR CONTINUED EVALUATION OF PATIENT CARE. RECEIVED ORDERS AND VERIFIED VIA READBACK. PATIENT IS STABLE AND IN NO ACUTE DISTRESS. WILL CONTINUE TO MONITOR PATIENT.
[2019-03-29] MEDS: APIXABAN 2.5 MG TABLET PO SCH (18:11)
[2019-03-29] MEDS: BUMETANIDE INJ 0.25 MG/ML VIAL IV SCH (18:14)
--- NOTE | 2019-03-29 19:30 | NUR ---
OPERATING ROOM SURGICAL TECHNICIAN CLOSING NOTES PATIENT IN BED, RESTING ON ROOM AIR SATURATING AT >95% O2. PATIENT BREATHING IS EVEN AND UNLABORED. PATIENT IN NO ACUTE DISTRESS. NO SOB NOTED. PATIENT VITAL SIGNS WITHIN NORMAL LIMITS. PATIENT AMBULATORY WITH ASSIST. PATIENT IV INTACT. PATIENT IN NO PAIN AT THIS TIME. INFORMED MALICK RN OF DR. CAMARGO ARRIVING LATER THIS EVENING. MADE DR. CAMARGO AWARE OF PATIENT ORDERS AND PATIENTS STABLE WELL BEING. PATIENT ON CARDIAC MONITORING, WITH CONTROLLED AFIB. ALL NURSING NEEDS MET. PATIENT KEPT CLEAN, DRY, AND COMFORTABLE. PATIENT BED IS LOCKED AND IN LOWEST POSITION. CALL LIGHT WITHIN REACH. ENDORSED CARE TO PM SHIFT FOR SHAUNA.
[2019-03-29] MEDS: BENAZEPRIL HCL 20 MG TABLET PO SCH (19:31)
--- NOTE | 2019-03-29 19:40 | NUR ---
TELERN AFIB CONTROLLED ON THE MONITOR. DENIES ANY DISCOMFORTS FOR NOW. TREATMENT PLAN REVIEWED WITH PATIENT APPEARS TO UNDERSTAND. AMBULATES WITH CANE, SAFETY PRECAUTIONS EMPHASIZED, WELL UNDERSTOOD. NO OTHER NEEDS MADE, CONTINUED MONITORING.
[2019-03-29 20:00] VITALS: BP 131/76
--- NOTE | 2019-03-29 20:20 | NUR ---
TELERN SEEN BY DR. CAMARGO, ORDERS RECEIVED.
[2019-03-29] MEDS ORDERED: ALBUTEROL FS 2.5 MG/0.5 ML VIAL.NEB NEB PRN (20:30)
[2019-03-29] MEDS ORDERED: CARVEDILOL 3.125 MG TABLET PO SCH (20:30)
[2019-03-29] MEDS ORDERED: POTASSIUM CHLORIDE 20 MEQ TAB.PRT.SR PO ONE (20:30)
[2019-03-29] MEDS ORDERED: ZOLPIDEM TARTRATE 5 MG TABLET PO PRN (20:30)
[2019-03-29] MEDS: IPRATROPIUM NEB FS 0.5 MG/2.5 ML AMPUL.NEB NEB SCH (20:30)
[2019-03-29] MEDS ORDERED: POTASSIUM CHLORIDE 10 MEQ TABLET.SA PO SCH (21:00)
[2019-03-29] MEDS ORDERED: CARVEDILOL 6.25 MG TABLET PO SCH (21:00)
[2019-03-29] MEDS ORDERED: Medication Not On Formulary EA (Apixaban (Eliquis) 5 MG) PO SCH (21:00)
[2019-03-29] MEDS ORDERED: Medication Not On Formulary EA (Benazepril Hcl 40 MG) PO SCH (21:00)
--- NOTE | 2019-03-29 21:05 | NUR ---
TELERN VISITORS AT BEDSIDE. TO CONTINUE
[2019-03-29 21:23] LABS: ABG BASE EXCESS 1.7 mmol/L; ABG PCO2 33.2 mmHg (35.0-45.0); ABG PH 7.487 (7.350-7.450); ABG PO2 61.3 mmHg (75.0-100.0); AaDO2 48.7 mmHg; COHb 0.8 % (0.5-1.5); MetHb 0.4 % (0.0-1.5); O2Hb 90.9 % (94.0-97.0); SITE, ABG Right Radial; VENT MODE, BG ROOM AIR
--- NOTE | 2019-03-29 22:15 | NUR ---
TELERN DUE MEDS ADMINISTERED, NO SOB, HAVE 02 STANDBY.
[2019-03-29] MEDS: GABAPENTIN 100 MG CAPSULE PO SCH (22:34)
[2019-03-30] VITALS: BP 122/61
[2019-03-30] MEDS: IPRATROPIUM NEB FS 0.5 MG/2.5 ML AMPUL.NEB NEB SCH ×4 (01:42→19:40)
[2019-03-30 04:00] VITALS: BP 105/57
[2019-03-30 06:47] LABS: ALANINE AMINOTRANSFERASE 12 U/L (12-78); ALBUMIN 3.5 g/dL (3.4-5.0); ALKALINE PHOSPHATASE 90 U/L (46-116); ASPARTATE AMINOTRANSFERASE 10 U/L (15-37); BILIRUBIN,TOTAL 1.5 mg/dL (0.2-1.0); CALCIUM, SERUM 8.9 mg/dL (8.5-10.1); CARBON DIOXIDE 24 mmol/L (21-32); CHLORIDE 102 mmol/L (98-107); CREATININE 1.4 mg/dL (0.6-1.3); GLUCOSE 96 mg/dL (74-106); MAGNESIUM 1.9 mg/dL (1.8-2.4); POTASSIUM 3.8 mmol/L (3.5-5.1); SODIUM SERUM 137 mmol/L (136-145); UREA NITROGEN, BLOOD 20 mg/dL (7-18)
--- NOTE | 2019-03-30 06:48 | NUR ---
TELERN REMAINS AFIB WITH CONTROLLED RATE, OCC PACED BEATS. NO OTHER NEEDS MADE. WENT BACK TO SLEEP.
--- NOTE | 2019-03-30 07:55 | NUR ---
TILE SETTER SUPERVISOR NOTES PATIENT RECEIVED RESTING INSIDE ROOM. AWAKE, ALERT AND ORIENTED X 4, VERBALLY RESPONSIVE AND RESPONDS TO9 VERBAL AND TACTILE STIMULI. NO ACUTE DISTRESS AT THIS TIME. DENIES ANY PAIN OR DISCOMFORT. PATIENT CALM AND RELAXED. CONTINUE ON TELEMETRY, ENGINEERING SECRETARY IN PLACE. WILL CONTINUE TO MONITOR. BED LOCKED AND IN LOW POSITION. BILATERAL UPPER SIDE RAILS UP AND LOCKED. CALL LIGHT WITHIN EASY REACH
[2019-03-30 08:00] VITALS: BP 111/56
[2019-03-30] MEDS: BENAZEPRIL HCL 20 MG TABLET PO SCH (08:40)
[2019-03-30] MEDS: GABAPENTIN 100 MG CAPSULE PO SCH ×3 (08:40→16:34)
[2019-03-30] MEDS: POTASSIUM CHLORIDE 20 MEQ TAB.PRT.SR PO SCH (08:40)
[2019-03-30] MEDS: BUMETANIDE INJ 0.25 MG/ML VIAL IV SCH (08:41)
[2019-03-30] MEDS ORDERED: Magnesium 1GM/D5W 100ML PREMIX PIGGYBACK IV ONE (09:00)
[2019-03-30 09:49] LABS: FREE PSA 0.43 ng/mL (0.00-45); PROSTATE SPECIFIC ANTIGEN SCR 1.27 ng/mL (0.00-4.00); THYROID STIMULATING HORMONE 3.252 uIU/mL (0.358-3.74)
[2019-03-30] MEDS: APIXABAN 2.5 MG TABLET PO SCH ×2 (10:07→16:35)
[2019-03-30 12:00] VITALS: BP 100/62
--- NOTE | 2019-03-30 15:06 | NUR ---
CARRIER WASHER NOTES RECEIVED ABDOMEN US RESULTS AND RELAYED TO DR CAMARGO, GAVE OK TO RESUME 2GM SODIUM DIET. ORDER NOTED AND CARRIED OUT. PATIENT MADE AWARE AND VERBALIZED UNDERSTANDING. WILL CONTINUE TO MONITOR
[2019-03-30 16:04] VITALS: BP 122/60
--- NOTE | 2019-03-30 18:26 | NUR ---
RECOVERY MANAGER NOTES PATIENT RESTING INSIDE ROOM. AWAKE, ALERT AND ORIENTED X 4, NO ACUTE DISTRESS. PATIENT KEPT CLEAN, DYUY AND COMFORTABLE. WILL ENDORSE TO INCOMING SHIFT FOR SHAUNA. BED LOCKED AND IN LOW POSITION. BILATERAL UPPER SIDE RAILS UP ND LOCKED. CALL LIGHT WITHIN EASY REACH
[2019-03-30 20:00] VITALS: BP 139/67
--- NOTE | 2019-03-30 21:40 | NUR ---
TELERN AWAKE, NO NEEDS FOR NOW. BRP AMBULATES WITH CANE, VOIDED FREELY. SAFETY PRECAUTIONS EMPHASIZED, CONTINUED
[2019-03-31] VITALS: BP 115/66
[2019-03-31] MEDS: IPRATROPIUM NEB FS 0.5 MG/2.5 ML AMPUL.NEB NEB SCH ×3 (01:31→13:24)
--- NOTE | 2019-03-31 01:39 | NUR ---
TELERN SLEEPING APPEARS COMFORTABLE. CLOSELY WATCHED.
[2019-03-31 04:00] VITALS: BP 118/55
[2019-03-31 06:46] LABS: BASOPHILS % (AUTO) 0.6 % (0.0-2.0); EOSINOPHILS % (AUTO) 6.2 % (0.0-6.0); HEMATOCRIT 37 % (39-51); HEMOGLOBIN 12.6 g/dL (13.5-17.5); LYMPHOCYTES # (AUTO) 1.5 /CMM (0.8-4.8); LYMPHOCYTES % (AUTO) 26.2 % (20.0-44.0); MEAN CORPUSCULAR HGB CONC 34 g/dl (31.0-36.0); MEAN CORPUSCULAR VOLUME 93 fL (80-96); MONOCYTES # (AUTO) 0.7 /CMM (0.1-1.30); MONOCYTES % (AUTO) 12.2 % (2.0-12.0); NEUTROPHILS # (AUTO) 3.2 /CMM (1.8-8.9); NEUTROPHILS % (AUTO) 54.8 % (43.0-81.0); PLATELET COUNT (AUTO) 198 /CMM (150-450); WHITE BLOOD COUNT (AUTO) 5.9 K/uL (4.3-11.0)
--- NOTE | 2019-03-31 06:46 | NUR ---
TELERN REMAINS AFIB ON THE MONITOR. NO DISCOMFORTS MADE. EAGER TO GO HOME. NO NEEDS MADE
[2019-03-31 07:00] LABS: ALANINE AMINOTRANSFERASE 11 U/L (12-78); ALBUMIN 3.5 g/dL (3.4-5.0); ALKALINE PHOSPHATASE 101 U/L (46-116); ASPARTATE AMINOTRANSFERASE 11 U/L (15-37); BILIRUBIN,TOTAL 0.8 mg/dL (0.2-1.0); CALCIUM, SERUM 8.7 mg/dL (8.5-10.1); CARBON DIOXIDE 27 mmol/L (21-32); CHLORIDE 102 mmol/L (98-107); CREATININE 1.5 mg/dL (0.6-1.3); GLUCOSE 106 mg/dL (74-106); POTASSIUM 3.6 mmol/L (3.5-5.1); SODIUM SERUM 139 mmol/L (136-145); TOTAL PROTEIN, SERUM 7.9 g/dL (6.4-8.2); UREA NITROGEN, BLOOD 28 mg/dL (7-18)
--- NOTE | 2019-03-31 07:28 | NUR ---
FUR CUTTER NOTES PATIENT RECEIVED RESTING INSIDE ROOM. AWAKE, ALERT AND ORIENTED X 4, VERBALLY RESPONSIVE AND RESPONDS TO VERBAL AND TACTILE STIMULI. NO ACUTE DISTRESS AT THIS TIME. DENIES ANY PAIN OR DISCOMFORT. PATIENT CALM AND RELAXED. CONTINUE ON TELEMETRY, PRODUCT DEVELOPMENT COORDINATOR IN PLACE. WILL CONTINUE TO MONITOR. BED LOCKED AND IN LOW POSITION. BILATERAL UPPER SIDE RAILS UP AND LOCKED. CALL LIGHT WITHIN EASY REACH
[2019-03-31] MEDS: GABAPENTIN 100 MG CAPSULE PO SCH ×2 (08:54→12:21)
[2019-03-31] MEDS: BENAZEPRIL HCL 20 MG TABLET PO SCH (08:54)
[2019-03-31] MEDS: POTASSIUM CHLORIDE 20 MEQ TAB.PRT.SR PO SCH (08:54)
[2019-03-31] MEDS: APIXABAN 2.5 MG TABLET PO SCH (08:55)
[2019-03-31 09:00] VITALS: BP 120/63
[2019-03-31] MEDS ORDERED: BUMETANIDE (1 MG) 1 MG TABLET PO SCH (09:00)
[2019-03-31 12:00] VITALS: BP 100/47
[2019-03-31] MEDS ORDERED: BUME1TAB4 PO (12:43)
[2019-03-31] MEDS ORDERED: POTA20TA83 PO (12:43)
[2019-03-31] MEDS ORDERED: GABA100C PO (12:43)
[2019-03-31] MEDS ORDERED: ALBU2.5V13 NEB (12:43)
[2019-03-31] MEDS ORDERED: BENA20TA9 PO (12:43)
[2019-03-31] MEDS ORDERED: APIX2.5T PO (12:43)
[2019-03-31] MEDS ORDERED: IPRA0.2S9 NEB (12:43)
[2019-03-31] MEDS ORDERED: ZOLP5TAB2 PO (12:43)
--- NOTE | 2019-03-31 15:41 | NUR ---
CALIBRATION CHECKER NOTES PATIENT DISCHARGED HOME TODAY, DISCHARGE INSTRUCTIONS AND EDUCATION GIVEN TO PATIENT AND VERBALIZED UNDERSTANDING. ALL BELONGINGS COMPLETE ON DISCHARGE, NO REPORT OF MISSING INVENTORY. IV REMOVED, TIP INTACT, PRESSURE DRESSING PLACED ON SITE. NO SKIN BREAKDOWN NOTED ON DISCHARGE. PATIENT LEFT UNIT AT 1540 IN STABLE CONDITION. NO ACUTE DISTRESS. PATIENT DENIES ANY PAIN OR DISCOMFORT. TELE MONITOR RETURNED TO UNIT. PATIENT ACCOMPANIED BY NURSING STAFF TO HOSPITAL PARKING, LEFT HOSPITAL PREMISES VIA PRIVATE CAR IN STABLE CONDITION. MD AWARE OF DISCHARGE
== END 2019-03-31 15:30 | disposition home or self-care (01) | DRG 291 ==
LOC: ER 10:34 → TELE 12:42 → MED 03-31 08:44 → TELE 03-31 10:46
PROVIDERS: ADMIT Family Medicine; ATTEND Family Medicine
DX: I13.0 Hypertensive heart and chronic kidney disease with heart failure and stage 1 through stage 4 chronic kidney disease, or unspecified chronic kidney disease (principal); I50.23 Acute on chronic systolic (congestive) heart failure; N18.9 Chronic kidney disease, unspecified; I25.5 Ischemic cardiomyopathy; I27.20 Pulmonary hypertension, unspecified; I07.1 Rheumatic tricuspid insufficiency; E11.22 Type 2 diabetes mellitus with diabetic chronic kidney disease; E78.5 Hyperlipidemia, unspecified; E66.9 Obesity, unspecified; E03.9 Hypothyroidism, unspecified; D69.6 Thrombocytopenia, unspecified; E83.42 Hypomagnesemia; F03.90 Unspecified dementia, unspecified severity, without behavioral disturbance, psychotic disturbance, mood disturbance, and anxiety; F41.9 Anxiety disorder, unspecified; F32.9 Major depressive disorder, single episode, unspecified; F43.10 Post-traumatic stress disorder, unspecified; G47.33 Obstructive sleep apnea (adult) (pediatric); H54.7 Unspecified visual loss; I25.10 Atherosclerotic heart disease of native coronary artery without angina pectoris; I35.0 Nonrheumatic aortic (valve) stenosis; J44.9 Chronic obstructive pulmonary disease, unspecified; K21.9 Gastro-esophageal reflux disease without esophagitis; N40.0 Benign prostatic hyperplasia without lower urinary tract symptoms; Z96.653 Presence of artificial knee joint, bilateral; Z95.1 Presence of aortocoronary bypass graft; Z95.0 Presence of cardiac pacemaker; Z91.19 Patient's noncompliance with other medical treatment and regimen; Z86.73 Personal history of transient ischemic attack (TIA), and cerebral infarction without residual deficits; Z82.49 Family history of ischemic heart disease and other diseases of the circulatory system; Z79.899 Other long term (current) drug therapy; Z79.01 Long term (current) use of anticoagulants; E11.42 Type 2 diabetes mellitus with diabetic polyneuropathy; K08.109 Complete loss of teeth, unspecified cause, unspecified class; R19.00 Intra-abdominal and pelvic swelling, mass and lump, unspecified site; R41.3 Other amnesia; Z68.37 Body mass index [BMI] 37.0-37.9, adult
CPT/HCPCS: 31720; 36415; 36600; 71045-TC; 76700-TC; 80048-TC; 80053-TC; 80076-TC; 80305; 82378; 82803-TC; 83735-TC; 83880; 84153-TC; 84154-TC; 84443-TC; 84484-TC; 85025-TC; 85730-TC; 87081-TC; 94799-TC; G0378; J1940; J3475; J3490; J7030